=== PATIENT | female | born 1940 | race Caucasian/White ===

== ENCOUNTER 2016-11-26 06:47 | Day surgery (SDC) | payer OTHER, BC ==
[2016-11-03 10:41] VITALS: BMI 22.3
[2016-11-26] MEDS: CYCLOPENTOLATE 2% OPHTH SOLN 2 ML BOTTLE ONE ×3 (07:25→07:35)
[2016-11-26] MEDS: CIPROFLOXACIN 0.3% EYE DROPS 5 ML BOTTLE ONE ×3 (07:25→07:35)
[2016-11-26] MEDS: PHENYLEPHRINE 2.5% OPHTH SOLN 15 ML BOTTLE ONE ×3 (07:25→07:35)
[2016-11-26] MEDS: TROPICAMIDE 1% OPHTH SOLN 15 ML BOTTLE ONE ×3 (07:25→07:35)
[2016-11-26] MEDS ORDERED: LIDOCAINE 1% P/F 10 MG/ML VIAL ONE (07:27)
[2016-11-26] MEDS ORDERED: CARBACHOL 0.01% INTRA-OCULAR 1.5 ML VIAL ONE (07:27)
[2016-11-26] MEDS ORDERED: BSS (NA/CA/MG/K) BALANCED SALT SOLUTION OPHTH SOLN 15 ML BOTTLE ONE (07:27)
[2016-11-26] MEDS ORDERED: MIDAZOLAM HCL 2 MG/2 ML SINGLE DOSE VIAL ONE (08:51)
[2016-11-26] MEDS ORDERED: LACTATED RINGERS SOLUTION 1,000 ML IV SCH (09:15)
[2016-11-26 10:12] VITALS: TEMP 97.7
[2016-11-26 10:13] VITALS: BP 142/61; PULSE 88
--- NOTE | 2016-11-26 16:05 | OP ---
DATE OF OPERATION: 11/26/2016 OPERATIVE PROCEDURE: Lens phacoemulsification with posterior chamber intraocular lens placement right eye. PREOPERATIVE DIAGNOSIS: Visually significant cataract of right eye. POSTOPERATIVE DIAGNOSIS: Visually significant cataract of right eye. SURGEON: Mani Jha M.D. ANESTHESIA: MAC PROCEDURE: The patient was brought to the operating room and placed under monitored anesthesia care by Anesthesia. A drop of tetracaine was then placed over the right eye. The patient was then prepped and draped in the usual sterile manner. A speculum was then placed over the right eye. The eye was then well irrigated with copious amounts of BSS (balanced salt solution). The operating microscope was then moved into position. A paracentesis was performed using a 15 degree blade. At this point 0.5 mL of 1% preservative-free lidocaine was injected into the anterior chamber. Amvisc Plus was then injected into the anterior chamber. A clear corneal incision was then formed using a 2.2 mm keratome. A capsulorrhexis was then performed in a continuous circular fashion beginning with a cystotome and completed with Utrata forceps. Hydrodissection was then performed using BSS on a cannula. The phaco probe was then introduced through the corneal wound and the cataract was removed using the phaco chop technique. Approximately 3 seconds of absolute phaco time was used. The remaining cortex was then removed using irrigation and aspiration with an I/A probe. The capsule was then filled with regular Amvisc and the capsule was noted to be intact. A previously selected foldable posterior chamber intraocular lens was then injected into the capsule through the corneal wound using a lens injector. It was then dialed into position using a Sinskey hook. The Amvisc was then removed using irrigation and aspiration. Miostat was then injected through the paracentesis to constrict the pupil. The paracentesis and corneal wound were then hydrated and noted to be watertight. A drop of Maxitrol was then placed over the eye. The speculum was removed and clear shield was taped over the eye. The patient tolerated the procedure well and there were no surgical complications. The patient was asked to follow up in my office the next day. MANI JHA M.D. LAUREANO/[id number]
== END 2016-11-26 10:05 | disposition home or self-care (01) ==
LOC: FASU 06:47
PROVIDERS: ATTEND Ophthalmology
PROC: 08RJ3JZ Replacement of Right Lens with Synthetic Substitute, Percutaneous Approach (ICD-10-PCS; principal; 2016-11-26 08:56)
DX: H26.8 Other specified cataract (principal)

== ENCOUNTER 2016-12-17 07:15 | Day surgery (SDC) | payer OTHER, BC ==
[2016-12-12 10:40] VITALS: BMI 22.3
[2016-12-17] MEDS ORDERED: TETRACAINE 0.5% OPHTH SOLN 2 ML BOTTLE ONE (07:41)
[2016-12-17] MEDS ORDERED: EPINEPHrine 1:1,000 1 MG/1 ML - 30ML VIAL (INJECTION) ONE (07:41)
[2016-12-17] MEDS ORDERED: BSS (NA/CA/MG/K) BALANCED SALT SOLUTION OPHTH SOLN 15 ML BOTTLE ONE (07:41)
[2016-12-17] MEDS ORDERED: CARBACHOL 0.01% INTRA-OCULAR 1.5 ML VIAL ONE (07:41)
[2016-12-17] MEDS: CYCLOPENTOLATE 2% OPHTH SOLN 2 ML BOTTLE ONE ×3 (08:00→08:10)
[2016-12-17] MEDS: PHENYLEPHRINE 2.5% OPHTH SOLN 15 ML BOTTLE ONE ×3 (08:00→08:10)
[2016-12-17] MEDS: CIPROFLOXACIN 0.3% EYE DROPS 5 ML BOTTLE ONE ×3 (08:00→08:10)
[2016-12-17] MEDS: TROPICAMIDE 1% OPHTH SOLN 15 ML BOTTLE ONE ×3 (08:00→08:10)
[2016-12-17] MEDS ORDERED: ACETAMINOPHEN 325 MG TABLET (FP) PO PRN (09:36)
[2016-12-17] MEDS ORDERED: MIDAZOLAM HCL 2 MG/2 ML SINGLE DOSE VIAL ONE (09:44)
[2016-12-17 10:27] VITALS: BP 130/70; PULSE 78; TEMP 98.2
--- NOTE | 2016-12-17 15:18 | OP ---
DATE OF PROCEDURE: 12/17/2016 OPERATIVE PROCEDURE: Lens Phacoemulsification with Posterior Chamber Intraocular Lens Placement Left Eye. PREOPERATIVE DIAGNOSIS: Visually Significant Cataract of Left Eye. POSTOPERATIVE DIAGNOSIS: Visually Significant Cataract of Left Eye. SURGEON: Mani Jha M.D. ANESTHESIA: MAC ANESTHESIOLOGIST: PROCEDURE: The patient was brought to the operating room and placed under monitored anesthesia care by Anesthesia. A drop of Tetracaine was then placed over the left eye. The patient was then prepped and draped in the usual sterile manner. A speculum was then placed over the left eye. The eye was then well irrigated with copious amounts of BSS (balanced salt solution). The operating microscope was then moved into position. A paracentesis was performed using a 15 degree blade. At this point 0.5 mL of 1% preservative-free lidocaine was injected into the anterior chamber. Amvisc plus was then injected into the anterior chamber. A clear corneal incision was then formed using a 2.2 mm keratome. A capsulorrhexis was then performed in a continuous circular fashion beginning with a cystotome, completed with an Utratas forceps. Hydrodissection was then performed using BSS on a cannula. The phaco probe was then introduced through the corneal wound and the cataract was removed using the phaco chop technique. Approximately 3 seconds of absolute phaco time was used. The remaining cortex was then removed using irrigation and aspiration with an I/A probe. The capsule was then filled with regular Amvisc and the capsule was noted to be intact. A previously selected foldable posterior chamber intraocular lens was then injected into the capsule through the corneal wound using a lens injector. It was then dialed into position using a Sinskey hook. The Amvisc was then removed using irrigation and aspiration. Miostat was then injected through the paracentesis to constrict the pupil. The paracentesis and corneal wound were then hydrated and noted to be water tight. A drop of Maxitrol was then placed over the eye. The speculum was removed and clear shield was taped over the eye. The patient tolerated the procedure well and there were no surgical complications. The patient was asked to follow up in my office the next day. MANI JHA M.D. LAUREANO/[id number]
== END 2016-12-17 11:05 | disposition home or self-care (01) ==
LOC: FASU 07:15
PROVIDERS: ATTEND Ophthalmology
PROC: 08RK3JZ Replacement of Left Lens with Synthetic Substitute, Percutaneous Approach (ICD-10-PCS; principal; 2016-12-17 09:49)
DX: H26.8 Other specified cataract (principal)

== ENCOUNTER 2019-02-15 17:42 | Emergency (ER) | payer OTHER, BC | END 2019-02-15 19:35 | disposition home or self-care (01) | LOC: FER 17:42 ==

== ENCOUNTER 2019-03-27 13:52 | Observation (INO) | payer OTHER, BC ==
--- NOTE | 2019-03-27 13:59 | PDOC ---
History of Present Illness - General Chief Complaint: Chest Pain Stated Complaint: CHEST PAIN Time Seen by Provider: 03/27/19 13:58 - History of Present Illness Initial Comments: 03/27/19 13:59 78 yo F with h/o Parkinson's disease, HLD who p/w chest pain. Patient reports unremitting, sharp, retrosternal/epigastria chest pain radiating directly to the back, present at rest, worse intermittently with supine positioning. Denies h/o similar pain. No identifiable alleviators. Denies abdominal or chest trauma. Reports episode of lightheadedness today at rest lasting for minutes and resolving spontaneously. Reports mild SOB. Patient denies RAND, vertigo, vision change, palpitations, cough, wheezing, orthopena, PND, leg swelling/pain, N/V, F,C, urinary complaints, hematuria, BPR , abdominal pain, diarrhea, constipation, lightheadedness, weakness, sensory changes. PMHx: as noted above. Denies h/o AZ, PE/DVT, stent placement, or CABG. ROS: as noted SHx: Distant smoking/tobacco history. Denies Etoh, IVDA Allergies: NKDA Past History - Past Medical History Allergies/Adverse Reactions: Allergies Allergy/AdvReac Type Severity Reaction Status Date / Time No Known Allergies Allergy Verified 03/27/19 13:55 Home Medications: Ambulatory Orders Ropinirole HCl 5 mg PO TID 11/03/16 Simvastatin [Zocor -] 20 mg PO DAILY 11/03/16 Safinamide Mesylate [Xadago] 1 tab PO DAILY 02/15/19 Carbidopa/Levodopa [Carbidopa-Levodopa 25-250 Tab] 1 each PO QID 03/27/19 Anemia: No Asthma: No Cancer: No Cardiac Disorders: No CVA: No COPD: No CHF: No Dementia: No Diabetes: No GI Disorders: No Disorders: No HTN: Yes Hypercholesterolemia: Yes Liver Disease: No Seizures: No Thyroid Disease: No - Surgical History Abdominal Surgery: No Appendectomy: No Cardiac Surgery: No Cholecystectomy: No Lung Surgery: No Neurologic Surgery: No Orthopedic Surgery: No - Suicide/Smoking/Psychosocial Hx Smoking History: Never smoked Hx Alcohol Use: No Drug/Substance Use Hx: No Substance Use Type: Alcohol Hx Substance Use Treatment: No Heart Score/ECG Review - History History: Slightly suspicious - Electrocardiogram EKG: Non specific repolarization disturbance - Age Age: >/= 65 - Risk Factors Risk Factors Heart Score: Yes Hx Hypercholesterolemia, Yes Hx Hypertension, Yes Smoking History, Yes Positive family hx of cardiac disease Based on the list above the patient has:: >/=3 risk factors or Hx atherosclerotic disease - Troponin Troponin: </= normal limit - Score Heart Score - Total: 5 ED Treatment Course - LABORATORY CBC & Chemistry Diagram: 03/27/19 14:50 03/27/19 14:50 - RADIOLOGY Radiology Studies Ordered: 03/27/19 17:32 Patient Information: : 1940 Order Type: Preliminary Name: GOGO COHEN Sex: F Study Description: CT CTA CHEST Modality: CT Location: [facility] Referring Physician: ROSETTA SUAREZ Comments: Steve Marie MD wrote on Mar 27, 2019 at 05:27 PM: Referring Physician: ROSETTA SUAREZ Patient Name: VICKI BOWENS PRELIMINARY REPORT FROM [facility] EXAM: CTA chest DATE: 2019-03-27 16:03:04 IMAGES: 355 HISTORY: dissection IMPRESSION: No central pulmonary embolism seen. No aortic dissection seen. Mild atelectasis / scarring. One or more of the following dose reduction techniques were used: automated exposure control, adjustment of the mA and/or kV according to patient size, use of iterative reconstructive technique. THIS DOCUMENT HAS BEEN ELECTRONICALLY SIGNED Steve Marie MD 03/27/2019 17:26 EST CONFIDENTIALITY NOTICE: This information is intended only for the use of the recipient(s) named above. If you are not the intended recipient, or a person responsible for delivering it to the intended recipient, you are hereby notified that any disclosure, copying, distribution or use of any of the information contained in or attached to this transmission is STRICTLY PROHIBITED. If you have received this transmission in error, please immediately notify Imaging Title Insurance Agent and destroy the original transmission and its attachments without saving them in any manner [address] [place] [address] [facility] [address] [place] [address] Phone: [phone] ([phone]) Fax: Email: [email or web address]: [email or web address] Patient Information: : 1940 Order Type: Preliminary Name: GOGO COHEN Sex: F Study Description: CT CTA CHEST Modality: CT Location: [facility] Referring Physician: ROSETTA SUAREZ M.D. Please call Imaging Title Insurance Agent [phone] ([phone]) with questions. Steve Marie MD Clinicians - Please contact Imaging Title Insurance Agent with further questions at [phone]) Patients - Please contact your Ordering Provider with questions. 03/27/19 17:45 FINDINGS: Chest No evidence of pulmonary embolus or aortic aneurysm or dissection normal three- vessel aortic arch branch configuration is present. Heart size is normal and without pericardial effusion. Lungs are clear of consolidation, effusion or pneumothorax. No endobronchial lesions are seen. No pathologic mediastinal adenopathy. Bony thoracic cage and spine are intact. CONFIDENTIALITY NOTICE: This information is intended only for the use of the recipient(s) named above. If you are not the intended recipient, or a person responsible for delivering it to the intended recipient, you are hereby notified that any disclosure, copying, distribution or use of any of the information contained in or attached to this transmission is STRICTLY PROHIBITED. If you have received this transmission in error, please immediately notify Imaging Title Insurance Agent and destroy the original transmission and its attachments without saving them in any manner [address] [facility] [address] [place] [address] Phone: [phone]) Fax: Email: [email or web address]: [email or web address] Patient Information: : 1940 Order Type: Preliminary Name: GOGO COHEN Sex: F Study Description: CT CTA CHEST ABDOMEN / CT CTA PELVIS Modality: CT Location: [facility] Referring Physician: ROSETTA SUAREZ Abdomen/Pelvis: The abdominal aorta, iliac and [facility] are patent without aneurysmal dilatation or dissection. Calcified plaque at the origin of the celiac and SMA with stenosis with flow seen distally.. The JONH,and bilateral renal arteries are patent . There is no retroperitoneal hemorrhage or pathologic adenopathy. Retroaortic left renal vein noted. Liver, gallbladder, pancreas, spleen and bilateral adrenal glands are unremarkable. There is no renal mass hydronephrosis or perinephric stranding There is no bowel obstruction ascites pneumoperitoneum or colitis. . Bladder unremarkable. Thoracic and lumbar spine intact without fracture, subluxation or osseous lesion. No evidence of spinal stenosis or large disc herniation. Degenerative changes of the spine are present IMPRESSION: No CT evidence of thoracic or abdominal aortic aneurysm or dissection Lungs are clear. No acute findings in the abdomen or pelvis. One or more of the following dose reduction techniques were used: automated exposure Medical Decision Making - Medical Decision Making 03/27/19 14:08 78 yo F with h/o Parkinson's disease, HLD who p/w unremitting, sharp, retrosternal/epigastria chest pain radiating directly to the back x 2 days, with episode of lightheadedness today at rest. Vitals wnl, AF, A&Ox3. Physical exam unremarkable. ACS/ME r/o. R/o Ao dissection. Will assess for cardiac dyssarythmia, hypoglycemia, electrolyte abnml, metabolic and toxic derangement, acid-base disturbances, infection. ED Course: 03/27/19 16:02 Laboratory Tests 03/27/19 03/27/19 14:50 14:50 WBC 6.1 Hgb 11.8 Hct 35.5 Plt Count 236 BUN 24.0 H Creatinine 0.7 03/27/19 16:47 EKG: Q waves V4-V6. NSR with absent HELIO, STD. Nml interval duration and axis. Nml R wave progression. 03/27/19 17:32 CTA CHEST: No central pulmonary embolism seen. No aortic dissection seen. Mild atelectasis / scarring. CT AP IMPRESSION: No CT evidence of thoracic or abdominal aortic aneurysm or dissection Lungs are clear. No acute findings in the abdomen or pelvis. One or more of the following dose reduction techniques were used: automated exposure 03/27/19 17:45 Patient to be admitted elevated heart score~5, lightheadedness, chest pain at rest 03/27/19 19:06 Pt[address] endorsed to medicine Dr. Biggs. Admitted Dr. Pereira *DC/Admit/Observation/Transfer Diagnosis at time of Disposition: Chest pain at rest, Light-headed - Discharge Dispostion Condition at time of disposition: Good Decision to Admit order: Yes - Referrals - Patient Instructions - Post Discharge Activity
[2019-03-27 14:20] VITALS: BMI 21.9
--- NOTE | 2019-03-27 15:20 | PDOC ---
Attending Attestation - Resident Resident Name: CodyBrandonJerry - ED Attending Attestation I have performed the following: I have examined & evaluated the patient, The case was reviewed & discussed with the resident, I agree w/resident's findings & plan, Exceptions are as noted - HPI HPI: 78 yo F history Parkinson's, HL presents with chest pain for the past two nights. Pain localizes to substernal chest, radiates to mid-back. No prior similar pain. She notes that the chest pain is worse with movement. Denies SOB, N/V, diaphoresis. She has chronic swelling to both ankles that is unchanged. No recent trauma. - Physicial Exam PE: GENERAL: Awake, alert, and fully oriented, in no acute distress HEAD: No signs of trauma EYES: PERRLA, EOMI, sclera anicteric, conjunctiva clear ENT: Auricles normal inspection, hearing grossly normal, nares patent, oropharynx clear without exudates. Moist mucosa NECK: Normal ROM, supple, no lymphadenopathy, JVD, or masses LUNGS: Breath sounds equal, clear to auscultation bilaterally. No wheezes, and no crackles HEART: Regular rate and rhythm, normal S1 and S2, no murmurs, rubs or gallops ABDOMEN: Soft, nontender, normoactive bowel sounds. No guarding, no rebound. No masses EXTREMITIES: Normal range of motion, no edema. No clubbing or cyanosis. No cords, erythema, or tenderness NEUROLOGICAL: Cranial nerves II through XII grossly intact. Speech somewhat slurred (chronic with her Parkinson's). Motor and sensation intact SKIN: Warm, dry, normal turgor, no rashes or lesions noted. - Medical Decision Making Pt with history of HL and 30 year history of smoking presents with chest pain radiating to the back. DDx includes ACS, pna, dissection. Will obtain labs, CXR , EKG, CTA chest. Heart Score/ECG Review - History History: Moderately suspicious - Electrocardiogram EKG: Non specific repolarization disturbance - Age Age: >/= 65 - Risk Factors Risk Factors Heart Score: Yes Hx Hypercholesterolemia, Yes Smoking History Based on the list above the patient has:: 1-2 risk factors - Troponin Troponin: </= normal limit - Score Heart Score - Total: 5 - ECG Impressions Comment:: EKG read 13:55- NSR 73 bpm, no acute ST/T changes. +Q waves V4-V6
[2019-03-27 15:23] LABS: BASO % 0.3 % (0-2.0); HEMATOCRIT 35.5 % (32.4-45.2); HEMOGLOBIN 11.8 GM/dl (10.7-15.3); MCH 33.8 pg (25.7-33.7); MCHC 33.2 g/dl (32.0-36.0); MEAN CELL VOLUME 101.6 fl (80-96); MEAN PLT VOLUME 8.1 fl (7.5-11.1); MONO % 6.5 % (3.8-10.2); NEUT % 74.2 % (42.8-82.8); PLATELET COUNT 236 K/MM3 (134-434); WHITE BLOOD COUNT 6.1 K/mm3 (4.0-10.8)
[2019-03-27 15:50] LABS: ALBUMIN 3.6 g/dl (3.4-5.0); CREATININE 0.7 mg/dl (0.55-1.3); POTASSIUM 4.2 mmol/L (3.5-5.1); TOT PROT 6.4 g/dl (6.4-8.2)
--- NOTE | 2019-03-27 20:43 | HP ---
CHIEF COMPLAINT: chest pain PCP: HISTORY OF PRESENT ILLNESS: 78 year old with PMHx of Parkinson's disease, HLD, arrived to ED with complain of chest pain (pain started two days ago comes and goes sharp in nature) pain starts at the epigastric region and radiates to low back, present at rest. As per patient did not have similar pain in the past, did not take any medication ( OTC) to relief the pain. At this time denies sob, N/V, abdominal pain, cough, urinary complaints. ER course was notable for: (1) EKG: NSR 73 bpm, no acute ST/T changes. +Q waves V4-V6 (2) troponin: negative (3) CTA chest / CXR negative Recent Travel: NO PAST MEDICAL HISTORY: HLD, Parkinson's disease PAST SURGICAL HISTORY: denies Social History: Smoking: history of smoking 30 years ago Alcohol:No Drugs: No Allergies: No Known Allergies Allergy (Verified 03/27/19 13:55) HOME MEDICATIONS: Home Medications Medication Instructions Recorded Ropinirole HCl 5 mg PO TID 11/03/16 Simvastatin [Zocor -] 20 mg PO DAILY 11/03/16 Safinamide Mesylate [Xadago] 1 tab PO DAILY 02/15/19 Carbidopa/Levodopa 1 each PO QID 03/27/19 [Carbidopa-Levodopa 25-250 Tab] REVIEW OF SYSTEMS CONSTITUTIONAL: Absent: complain of lightheadedness HEENT: Absent: rhinorrhea, nasal congestion, throat pain, throat swelling, difficulty swallowing, mouth swelling, ear pain, eye pain, visual changes CARDIOVASCULAR: + chest pain, lightheadedness RESPIRATORY: Absent: cough, shortness of breath, dyspnea with exertion, orthopnea, wheezing, stridor, hemoptysis GASTROINTESTINAL: Absent: abdominal pain, abdominal distension, nausea, vomiting , diarrhea, constipation, melena, hematochezia GENITOURINARY: Absent: dysuria, frequency, urgency, hesitancy, hematuria, flank pain, genital pain MUSCULOSKELETAL: Absent: myalgia, arthralgia, joint swelling, back pain, neck pain SKIN: Absent: rash, itching, pallor NEUROLOGIC: Absent: headache, focal weakness or paresthesias, dizziness Absent: anxiety, depression, suicidal or homicidal ideation, hallucinations. PHYSICAL EXAMINATION Vital Signs - 24 hr 03/27/19 03/27/1919 13:53 14:15 15:15 Temperature 98.5 F Pulse Rate 76 Pulse Rate [ 80 65 Apical] Respiratory 18 16 16 Rate Blood Pressure 142/60 Blood Pressure 144/76 110/50 L [Right Arm] O2 Sat by Pulse 98 98 98 Oximetry (%) 03/27/19 18:15 Temperature Pulse Rate Pulse Rate [ 72 Apical] Respiratory 18 Rate Blood Pressure Blood Pressure 132/63 [Right Arm] O2 Sat by Pulse 98 Oximetry (%) GENERAL: Awake, alert, and fully oriented, in no acute distress. HEENT: NC/AT, EOMI,PERRLA NECK: No JVD, or masses. LUNGS: Breath sounds equal, clear to auscultation bilaterally. No wheezes, and no crackles. No accessory muscle use. HEART: Regular rate and rhythm, normal S1 and S2 without murmur, rub or gallop. ABDOMEN: Soft, nontender, not distended, normoactive bowel sounds, no guarding, no rebound, no masses. MUSCULOSKELETAL: Normal range of motion at all joints. No bony deformities or tenderness. No CVA tenderness NEUROLOGICAL: Cranial nerves II-XII intact. Normal speech. Normal gait. PSYCHIATRIC: Cooperative. Good eye contact. Appropriate mood and affect. SKIN: Warm, dry, normal turgor, no rashes or lesions noted, normal capillary refill. Laboratory Results - last 24 hr 03/27/19 03/27/19 03/27/19 14:50 14:50 14:50 WBC 6.1 RBC 3.50 L Hgb 11.8 Hct 35.5 MCV 101.6 H MCH 33.8 H MCHC 33.2 RDW 13.0 Plt Count 236 MPV 8.1 Absolute Neuts (auto) 4.5 Neutrophils % 74.2 Lymphocytes % 18.0 Monocytes % 6.5 Eosinophils % 1.0 Basophils % 0.3 Sodium 137 Potassium 4.2 Chloride 106 Carbon Dioxide 24 Anion Gap 7 L BUN 24.0 H Creatinine 0.7 Est GFR (CKD-EPI)AfAm 95.51 Est GFR (CKD-EPI)NonAf 82.41 Random Glucose 102 Calcium 9.0 Total Bilirubin 1.0 AST 17 ALT 5 L Alkaline Phosphatase 69 Creatine Kinase Troponin I < 0.03 Total Protein 6.4 Albumin 3.6 03/27/19 14:50 WBC RBC Hgb Hct MCV MCH MCHC RDW Plt Count MPV Absolute Neuts (auto) Neutrophils % Lymphocytes % Monocytes % Eosinophils % Basophils % Sodium Potassium Chloride Carbon Dioxide Anion Gap BUN Creatinine Est GFR (CKD-EPI)AfAm Est GFR (CKD-EPI)NonAf Random Glucose Calcium Total Bilirubin AST ALT Alkaline Phosphatase Creatine Kinase 101 Troponin I Total Protein Albumin ASSESSMENT/PLAN: 78 year old female with PMhx of Parkinson's disease, HLD present to ED for retrosternal /epigastric chest pain sharp in nature started 2 days ago, today noted with lightheadedness for brief moment then relief. # Chest pain - EKG: non-impressive - Troponin: negative - follow up Troponin #2 - monitor for sob and acute changes in CP # GERD - give Mylanta x1 - start Prilosec 40 mg daily # HLD - continue with zocor - # parkinson's - Continue ith Carbidpoda/ levodopa - Continue with Ropinirole and Safinamide Problem List - Problem (1) Chest pain at rest Code(s): R07.9 - CHEST PAIN, UNSPECIFIED (2) GERD (gastroesophageal reflux disease) Code(s): K21.9 - GASTRO-ESOPHAGEAL REFLUX DISEASE WITHOUT ESOPHAGITIS (3) HLD (hyperlipidemia) Code(s): E78.5 - HYPERLIPIDEMIA, UNSPECIFIED (4) Parkinsons disease Code(s): G20 - PARKINSON'S DISEASE Visit type - Emergency Visit Emergency Visit: Yes ED Registration Date: 03/27/19 Care time: The patient presented to the Emergency Department on the above date and was hospitalized for further evaluation of their emergent condition. - New Patient This patient is new to me today: Yes Date on this admission: 03/27/19 - Critical Care Critical Care patient: No
[2019-03-27] MEDS ORDERED: MAG HYDROX/AL HYDROX/SIMETH 30 ML UNIT-DOSE CUP PO ONE (20:46)
[2019-03-27] MEDS ORDERED: POLYETHYLENE GLYCOL 3350 119 GM BTL PO ONE (20:49)
--- NOTE | 2019-03-27 21:01 | EKG ---
Test Reason : Blood Pressure : / mmHG Vent. Rate : 073 BPM Atrial Rate : 073 BPM P-R Int : 136 ms QRS Dur : 080 ms QT Int : 374 ms P-R-T Axes : 079 069 070 degrees QTc Int : 412 ms NORMAL SINUS RHYTHM NORMAL ECG NO PREVIOUS ECGS AVAILABLE Confirmed by TIFFANIE PRICE MD ([id number]) on 03/27/2019 9:00:30 PM Referred By: ERICK SARGENT Confirmed By:TIFFANIE PRICE MD
[2019-03-27] MEDS ORDERED: ROPINIROLE HCL 5 MG PO SCH (22:00)
[2019-03-27] MEDS: HEPARIN NA (PORCINE) 5,000 UNITS/ML 1ML VIAL SQ SCH (22:37)
[2019-03-27] MEDS: rOPINIRole HCL 1 MG TABLET (FP) PO SCH (22:37)
[2019-03-27] MEDS: CARBIDOPA/LEVODOPA 25/250 TABLET (FP) PO SCH (22:37)
[2019-03-27] MEDS: ATORVASTATIN CA 10 MG TABLET (FP) PO SCH (22:37)
[2019-03-28 08:49] LABS: CREATININE 0.7 mg/dl (0.55-1.3); POTASSIUM 4.5 mmol/L (3.5-5.1)
[2019-03-28 08:51] LABS: HEMATOCRIT 34.2 % (32.4-45.2); HEMOGLOBIN 11.7 GM/dl (10.7-15.3); MCH 34.8 pg (25.7-33.7); MCHC 34.1 g/dl (32.0-36.0); MEAN PLT VOLUME 8.6 fl (7.5-11.1); PLATELET COUNT 218 K/MM3 (134-434); RBC 3.35 M/mm3 (3.60-5.2); RDW 12.8 % (11.6-15.6)
--- NOTE | 2019-03-28 09:20 | PN ---
Progress Note, Physician Chief Complaint: chest pain at rest History of Present Illness: 78 year old with PMHx of Parkinson's disease, HLD, arrived to ED with complain of chest pain (pain started two days ago comes and goes sharp in nature) pain starts at the epigastric region and radiates to low back, present at rest. As per patient did not have similar pain in the past, did not take any medication ( OTC) to relief the pain. At this time denies sob, N/V, abdominal pain, cough, urinary complaints. - Current Medication List Current Medications: Active Medications Atorvastatin Calcium (Lipitor -) 10 mg PO HS [facility] Last Admin: 03/27/19 22:37 Dose: 10 mg Carbidopa/Levodopa (Sinemet 25/250 -) 1 each PO QID [facility] Last Admin: 03/27/19 22:37 Dose: 1 each Heparin Sodium (Porcine) (Heparin -) 5,000 unit SQ BID [facility] Last Admin: 03/27/19 22:37 Dose: 5,000 unit Pantoprazole Sodium (Protonix -) 20 mg PO DAILY [facility] Polyethylene Glycol (Miralax (For Daily Use) -) 17 gm PO DAILY [facility] Ropinirole HCl (Requip -) 1 mg PO QID [facility] Last Admin: 03/27/19 22:37 Dose: 1 mg - Objective Vital Signs: Vital Signs Temperature 97.5 F L 03/28/19 04:04 Pulse Rate 64 03/28/19 04:04 Respiratory Rate 18 03/28/19 04:04 Blood Pressure 124/60 03/28/19 04:04 O2 Sat by Pulse Oximetry (%) 97 03/28/19 04:04 Constitutional: Yes: Well Nourished, No Distress, Calm Eyes: Yes: WNL, Conjunctiva Clear, EOM Intact HENT: Yes: WNL, Atraumatic, Normocephalic Neck: Yes: WNL, Supple, Trachea Midline Cardiovascular: Yes: WNL, Regular Rate and Rhythm Respiratory: Yes: WNL, Regular, CTA Bilaterally Gastrointestinal: Yes: WNL, Normal Bowel Sounds, Soft ...Rectal Exam: Yes: Deferred Genitourinary: Yes: WNL Breast(s): Yes: WNL Musculoskeletal: Yes: WNL Extremities: Yes: WNL Edema: Yes Edema: LLE: 1+, RLE: 1+ Peripheral Pulses WNL: Yes Integumentary: Yes: WNL Neurological: Yes: WNL, Alert, Oriented ...Motor Strength: WNL Psychiatric: Yes: WNL, Alert, Oriented Labs: CBC, BMP 03/28/19 07:09 03/28/19 07:09 - ....Imaging Cat Scan: Report Reviewed (No abdominal/thoracic anyerysm noted. Bibasilat atelectasis. Fecal retention) Problem List - Problems (1) Fecal retention Assessment/Plan: history of chronic constipation c/w miralax dulcolax OO and if no result may give magnesium citrate Code(s): K59.00 - CONSTIPATION, UNSPECIFIED (2) Prophylactic measure Assessment/Plan: FEN adequate oral intact monitor electrolytes regular diet DVT heoarin sq Dispo maintain as in patient full code discharge planning Code(s): Z29.9 - ENCOUNTER FOR PROPHYLACTIC MEASURES, UNSPECIFIED (3) Chest pain at rest Assessment/Plan: chest pain resolved trop negative CTA negative EKG without ischemia, repeat if Chest pain returns will consult cardiology if chest pain returns for further testing Code(s): R07.9 - CHEST PAIN, UNSPECIFIED (4) GERD (gastroesophageal reflux disease) Assessment/Plan: c/w protonix Code(s): K21.9 - GASTRO-ESOPHAGEAL REFLUX DISEASE WITHOUT ESOPHAGITIS (5) HLD (hyperlipidemia) Assessment/Plan: c/w atorvastatin Code(s): E78.5 - HYPERLIPIDEMIA, UNSPECIFIED (6) Parkinsons disease Assessment/Plan: c/w sinemet c/w Ropinirole and Safinamide Code(s): G20 - PARKINSON'S DISEASE Visit type - Emergency Visit Emergency Visit: Yes ED Registration Date: 03/28/19 Care time: The patient presented to the Emergency Department on the above date and was hospitalized for further evaluation of their emergent condition. - New Patient This patient is new to me today: Yes Date on this admission: 03/28/19 - Critical Care Critical Care patient: No - Discharge Referral Referred to [facility] Med P.C.: No
[2019-03-28] MEDS ORDERED: PATIENT'S OWN MEDICATION (NON-FORMULARY) (Simvastatin 20 MG) PO SCH (10:00)
[2019-03-28] MEDS ORDERED: SAFINAMIDE MESYLATE PO SCH (10:00)
[2019-03-28] MEDS: POLYETHYLENE GLYCOL 3350 119 GM BTL PO SCH (10:08)
[2019-03-28] MEDS: HEPARIN NA (PORCINE) 5,000 UNITS/ML 1ML VIAL SQ SCH ×2 (10:08→22:05)
[2019-03-28] MEDS: PANTOPRAZOLE 20 MG TABLET (FP) PO SCH (10:09)
[2019-03-28] MEDS: rOPINIRole HCL 1 MG TABLET (FP) PO SCH ×4 (10:09→22:05)
[2019-03-28] MEDS: CARBIDOPA/LEVODOPA 25/250 TABLET (FP) PO SCH ×4 (10:09→22:05)
[2019-03-28] MEDS ORDERED: BISACODYL 5 MG TABLET.DR (FP) PO ONE (11:00)
[2019-03-28] MEDS ORDERED: MAGNESIUM CITRATE 300 ML BOTTLE PO PRN (11:12)
[2019-03-28] MEDS ORDERED: ACETAMINOPHEN 325 MG TABLET (FP) PO PRN (18:14)
[2019-03-28] MEDS ORDERED: SODIUM PHOSPHATE/NA BIPHOS 133 ML ENEMA PR ONE (20:50)
[2019-03-28] MEDS: ATORVASTATIN CA 10 MG TABLET (FP) PO SCH (22:05)
[2019-03-29 08:51] LABS: BASO % 0.4 % (0-2.0); EOS % 3.8 % (0-4.5); HEMATOCRIT 35.5 % (32.4-45.2); MCH 34.2 pg (25.7-33.7); MCHC 33.8 g/dl (32.0-36.0); MEAN CELL VOLUME 101.4 fl (80-96); MEAN PLT VOLUME 8.3 fl (7.5-11.1); MONO % 8.6 % (3.8-10.2); NEUT % 63.2 % (42.8-82.8); PLATELET COUNT 224 K/MM3 (134-434); RDW 12.6 % (11.6-15.6); WHITE BLOOD COUNT 5.8 K/mm3 (4.0-10.8)
[2019-03-29 09:05] LABS: ALBUMIN 3.5 g/dl (3.4-5.0); BILIRUBIN,TOTAL 0.8 mg/dl (0.2-1); CALCIUM 8.8 mg/dl (8.5-10); CREATININE 0.7 mg/dl (0.55-1.3); MAGNESIUM 2.5 mg/dL (1.8-2.4); POTASSIUM 3.9 mmol/L (3.5-5.1); TOT PROT 6.4 g/dl (6.4-8.2)
[2019-03-29] MEDS ORDERED: ALBUTEROL SO4 2.5/IPRATROPIUM 0.5 INH SOL 3 ML VIAL.NEB. NEB PRN (09:59)
[2019-03-29] MEDS ORDERED: POTASSIUM CHLORIDE ORAL LIQUID 20 MEQ/15 ML PO ONE (10:15)
[2019-03-29] MEDS: HEPARIN NA (PORCINE) 5,000 UNITS/ML 1ML VIAL SQ SCH ×2 (10:31→22:15)
[2019-03-29] MEDS: POLYETHYLENE GLYCOL 3350 119 GM BTL PO SCH (10:34)
[2019-03-29] MEDS: CARBIDOPA/LEVODOPA 25/250 TABLET (FP) PO SCH ×4 (10:36→22:16)
[2019-03-29] MEDS: PANTOPRAZOLE 20 MG TABLET (FP) PO SCH (10:36)
[2019-03-29] MEDS: rOPINIRole HCL 1 MG TABLET (FP) PO SCH ×4 (10:36→22:16)
[2019-03-29] MEDS ORDERED: MAG HYDROX/AL HYDROX/SIMETH -MYLANTA- ORAL SUSPENSION PO SCH (12:00)
--- NOTE | 2019-03-29 14:13 | PN ---
Progress Note, Physician Chief Complaint: epigastric pain continued, denies radiation to back History of Present Illness: 24HR events CTA negative for dissection, + fecal retention + bowel movement with intensified bowel regimen pt with epigastric pain this morning relieved with maalox and protonix - Current Medication List Current Medications: Active Medications Acetaminophen (Tylenol -) 650 mg PO Q6H PRN PRN Reason: PAIN LEVEL 4 - 6 Last Admin: 03/28/19 18:20 Dose: 650 mg Al Hydroxide/Mg Hydroxide (Mylanta Suspension -) 30 ml PO Q6HPO [facility] Last Admin: 03/29/19 12:26 Dose: 30 ml Albuterol/Ipratropium (Duoneb -) 1 amp NEB Q6H PRN PRN Reason: SHORTNESS OF BREATH Atorvastatin Calcium (Lipitor -) 10 mg PO HS [facility] Last Admin: 03/28/19 22:05 Dose: 10 mg Carbidopa/Levodopa (Sinemet 25/250 -) 1 each PO QID [facility] Last Admin: 03/29/19 10:36 Dose: 1 each Famotidine (Pepcid -) 20 mg PO [facility] Heparin Sodium (Porcine) (Heparin -) 5,000 unit SQ BID [facility] Last Admin: 03/29/19 10:31 Dose: 5,000 unit Magnesium Citrate (Citroma -) 300 ml PO PRN PRN PRN Reason: CONSTIPATION Last Admin: 03/28/19 22:06 Dose: 300 ml Pantoprazole Sodium (Protonix -) 20 mg PO DAILY [facility] Last Admin: 03/29/19 10:36 Dose: 20 mg Polyethylene Glycol (Miralax (For Daily Use) -) 17 gm PO DAILY [facility] Last Admin: 03/29/19 10:34 Dose: 17 gm Ropinirole HCl (Requip -) 1 mg PO QID [facility] Last Admin: 03/29/19 10:36 Dose: 1 mg Senna/Docusate Sodium (Pericolace -) 1 tablet PO BID [facility] - Objective Vital Signs: Vital Signs Temperature 97.5 F L 03/29/19 10:00 Pulse Rate 71 03/29/19 10:00 Respiratory Rate 18 03/29/19 10:00 Blood Pressure 143/64 03/29/19 10:00 O2 Sat by Pulse Oximetry (%) 98 03/29/19 08:00 Constitutional: Yes: No Distress, Calm, Thin Eyes: Yes: Conjunctiva Clear, PERRL HENT: Yes: Atraumatic, Normocephalic Neck: Yes: Supple Cardiovascular: Yes: Regular Rate and Rhythm Respiratory: Yes: Regular, Wheezes Gastrointestinal: Yes: Normal Bowel Sounds, Soft Musculoskeletal: Yes: Muscle Weakness Extremities: Yes: WNL Edema: No Peripheral Pulses WNL: Yes Peripheral Pulses: Left Radial: 2+, Right Radial: 2+ Integumentary: Yes: WNL Neurological: Yes: Alert, Oriented ...Motor Strength: LLE, RLE (decreased muscle strength b/l 4/5) Psychiatric: Yes: Alert, Oriented Labs: CBC, BMP 03/29/19 07:13 03/29/19 07:13 Problem List - Problems (1) Epigastric pain Assessment/Plan: Limited abd sono to assess Liver/GB/Pancreas Code(s): R10.13 - EPIGASTRIC PAIN (2) GERD (gastroesophageal reflux disease) Assessment/Plan: continue protonix add famotidine at bedtime PRN maalox Code(s): K21.9 - GASTRO-ESOPHAGEAL REFLUX DISEASE WITHOUT ESOPHAGITIS (3) HLD (hyperlipidemia) Assessment/Plan: c/w lipitor low fat diet Code(s): E78.5 - HYPERLIPIDEMIA, UNSPECIFIED (4) Prophylactic measure Assessment/Plan: FEN:Ensure adequate oral intake OOB to chair Ambulate as tolerated Incentive spirometer DVT: heparin sq Code(s): Z29.9 - ENCOUNTER FOR PROPHYLACTIC MEASURES, UNSPECIFIED (5) Parkinsons disease Assessment/Plan: c/w sinemet c/w Ropinirole and Safinamide frequent reorientation Code(s): G20 - PARKINSON'S DISEASE (6) Wheezing on auscultation Assessment/Plan: Duonebs Q6hrs PRN Oxygen IS Code(s): R06.2 - WHEEZING (7) Constipation by delayed colonic transit Assessment/Plan: start pericolace BID PRN miralax high fiber diet Code(s): K59.01 - SLOW TRANSIT CONSTIPATION Impression/Plan Impression/Plan: DISPO:home when stable, most likely tomorrow morning if RUQ sono negative, pt can be discharged with GI follow up Code status: Full code Visit type - Emergency Visit Emergency Visit: Yes ED Registration Date: 03/28/19 Care time: The patient presented to the Emergency Department on the above date and was hospitalized for further evaluation of their emergent condition. - New Patient This patient is new to me today: Yes Date on this admission: 03/29/19 - Critical Care Critical Care patient: No - Discharge Referral Referred to [facility] Med P.C.: Yes Physician Referral: Pineda Morales DO (GI)
[2019-03-29] MEDS ORDERED: MAG HYDROX/AL HYDROX/SIMETH 30 ML UNIT-DOSE CUP PO SCH (17:45)
[2019-03-29] MEDS: MAG HYDROX/AL HYDROX/SIMETH 30 ML UNIT-DOSE CUP PO SCH (17:52)
[2019-03-29] MEDS ORDERED: FAMOTIDINE 20 MG TABLET PO SCH (22:00)
[2019-03-29] MEDS: ATORVASTATIN CA 10 MG TABLET (FP) PO SCH (22:15)
[2019-03-29] MEDS: SENNOSIDES/DOCUSATE COMBO (SENNA PLUS) TABLET (UD) PO SCH (22:16)
[2019-03-30] MEDS: MAG HYDROX/AL HYDROX/SIMETH 30 ML UNIT-DOSE CUP PO SCH ×3 (00:32→12:09)
[2019-03-30 07:53] LABS: BASO % 0.3 % (0-2.0); EOS % 4.8 % (0-4.5); HEMATOCRIT 35.9 % (32.4-45.2); HEMOGLOBIN 12.1 GM/dl (10.7-15.3); LYMPH % 29.4 % (8-40); MCH 33.9 pg (25.7-33.7); MCHC 33.6 g/dl (32.0-36.0); MEAN CELL VOLUME 100.9 fl (80-96); MEAN PLT VOLUME 8.3 fl (7.5-11.1); MONO % 8.5 % (3.8-10.2); PLATELET COUNT 244 K/MM3 (134-434); RBC 3.55 M/mm3 (3.60-5.2); RDW 12.6 % (11.6-15.6); WHITE BLOOD COUNT 5.4 K/mm3 (4.0-10.8)
[2019-03-30 07:59] LABS: ALBUMIN 3.5 g/dl (3.4-5.0); BILIRUBIN,TOTAL 0.6 mg/dl (0.2-1); CREATININE 0.8 mg/dl (0.55-1.3); MAGNESIUM 2.7 mg/dL (1.8-2.4); POTASSIUM 4.3 mmol/L (3.5-5.1); TOT PROT 6.4 g/dl (6.4-8.2)
[2019-03-30] MEDS: POLYETHYLENE GLYCOL 3350 119 GM BTL PO SCH (09:23)
[2019-03-30] MEDS: HEPARIN NA (PORCINE) 5,000 UNITS/ML 1ML VIAL SQ SCH (09:24)
[2019-03-30] MEDS: PANTOPRAZOLE 20 MG TABLET (FP) PO SCH (09:24)
[2019-03-30] MEDS: CARBIDOPA/LEVODOPA 25/250 TABLET (FP) PO SCH (09:24)
[2019-03-30] MEDS: rOPINIRole HCL 1 MG TABLET (FP) PO SCH (09:24)
[2019-03-30] MEDS: SENNOSIDES/DOCUSATE COMBO (SENNA PLUS) TABLET (UD) PO SCH (09:24)
[2019-03-30 09:29] VITALS: BP 154/66; PULSE 86; TEMP 97.6
--- NOTE | 2019-03-30 10:08 | DS ---
Physical Examination Vital Signs: Vital Signs Temperature 97.6 F 03/30/19 09:28 Pulse Rate 86 03/30/19 09:28 Respiratory Rate 18 03/30/19 09:28 Blood Pressure 154/66 03/30/19 09:28 O2 Sat by Pulse Oximetry (%) 99 03/30/19 08:00 Constitutional: Yes: No Distress, Calm Eyes: Yes: Conjunctiva Clear, PERRL HENT: Yes: Atraumatic, Normocephalic Neck: Yes: Supple, Trachea Midline Cardiovascular: Yes: Regular Rate and Rhythm Respiratory: Yes: Regular, CTA Bilaterally Gastrointestinal: Yes: Normal Bowel Sounds, Soft ...Rectal Exam: Yes: Deferred Renal/: Yes: Other (adult diaper in place) Musculoskeletal: Yes: Joint Stiffness, Muscle Weakness Extremities: Yes: WNL Edema: No Peripheral Pulses WNL: Yes Peripheral Pulses: Left Radial: 2+, Right Radial: 2+ Integumentary: Yes: WNL Neurological: Yes: Alert, Oriented, Unsteady Gait, Weakness ...Motor Strength: LLE (weakness, strength 4/5), RLE Psychiatric: Yes: Alert, Oriented Labs: CBC, BMP 03/30/19 06:53 03/30/19 06:53 Discharge Summary Reason For Visit: CHEST PAIN AT REST - LIGHT HEADEDNESS Current Active Problems Chest pain at rest (Acute) Constipation by delayed colonic transit (Acute) Epigastric pain (Acute) Fecal retention (Acute) GERD (gastroesophageal reflux disease) (Acute) HLD (hyperlipidemia) (Acute) Light-headed (Acute) Prophylactic measure (Acute) Wheezing on auscultation (Acute) Procedures: Principal: CXR 03/27/2019. AP chest: Shortness of breath. A single AP view of the chest reveals clear lungs, normal heart, unfolded aorta and prominent hilar markings with some minimal scarring at the left base. The angles are sharp. The soft tissues are intact. An acute process is not seen. Since 11/26/2018, the cardiac silhouette is slightly smaller and focal scarring by the left base is again noted. Correlation recommended. Reported By: Ruben Bhatti MD 03/27/19 1518. . CTA chest 03/27/2019. IMPRESSION: 1. No evidence of thoracic or abdominal aortic aneurysm or dissection. 2. Mild bibasilar atelectasis, no acute pathology within the chest. 3. Fecal retention, no acute pathology within the abdomen or pelvis. Please see above discussion. Reported By: Kar Gaona MD 03/28/[address] abd and pelvis w/ and WO contrast 03/27/2019. IMPRESSION: 1. No evidence of thoracic or abdominal aortic aneurysm or dissection. 2. Mild bibasilar atelectasis, no acute pathology within the chest. 3. Fecal retention, no acute pathology within the abdomen or pelvis. Please see above discussion. Reported By: Kar Gaona MD 03/28/19 0932. . Abd X-ray 03/29/2019. Impression: No sign of impaction or gross constipation. Free air not seen. Reported By: Ruben Bhatti MD 03/29/19 1132. . CXR 03/29/2019. Single AP view of the chest is been submitted. Since the prior study of 03/27/2019 there is no significant change and no sign of an acute chest process. There are clear lungs and normal mediastinum. Reported By: Ruben Bhatti MD 03/29/19 1126. Other Procedures: Abd sono 03/29/2019. IMPRESSION: No gallstones identified. Calcified atheromatous plaques in visualized portion of the abdominal aorta down through its bifurcation. Reported By: Malachi Ott MD 03/30/19 0911 Hospital Course: 78 year old with PMHx of Parkinson's disease, HLD, arrived to ED with complain of chest pain (pain started two days ago comes and goes sharp in nature) pain starts at the epigastric region and radiates to low back, present at rest. As per patient did not have similar pain in the past, did not take any medication ( OTC) to relief the pain. At this time denies sob, N/V, abdominal pain, cough, urinary complaints. ER course was notable for: (1) EKG: NSR 73 bpm, no acute ST/T changes. +Q waves V4-V6 (2) troponin: negative (3) CTA chest / CXR negative Inpatient work up did not reveal any acute pathologies. Her constipation was treated with pericolace/miralax and dulcolax supp and her GERD symptoms were relieved with maalox/protonix/pepcid. Pt deemed stable for discharge with outpatient GI follow up. Appointment scheduled with Dr. Pineda Morales DO Address: [address] [place] [address] Date: april 27 2019, 4:30pm Condition: Guarded - Instructions Diet, Activity, Other Instructions: Gastritis is inflammation and irritation of the stomach lining. You can have it for a short time (acute) or be long lasting (chronic). Infection with bacteria called H pylori most often causes gastritis. More than a third of people in the have these bacteria in their bodies. In many cases, H pylori causes no problems or symptoms. In some people, though, the infection irritates the stomach lining and causes gastritis. H. pylori may be diagnosed through blood, stool, or breath tests, we well as through biopsy during an endoscopy. Other causes of stomach irritation include drinking alcohol, smoking or chewing tobacco, or taking pain-relieving medicines called NSAIDs (such as aspirin or ibuprofen). Certain drugs (such as cocaine) and immune conditions can also cause gastritis. Symptoms of gastritis can include: Belly pain or bloating Feeling full quickly Loss of appetite Nausea or vomiting Vomiting blood or having black stools Feeling more tired than usual An inflamed and irritated stomach lining is more likely to develop a sore called an ulcer. To help prevent this, gastritis should be treated. Gastroenterology appointment Referrals: Luis Morales DO [Staff Physician] - Disposition: HOME - Home Medications Comprehensive Discharge Medication List: Ambulatory Orders Ropinirole HCl 5 mg PO TID 11/03/16 Simvastatin [Zocor -] 20 mg PO DAILY 11/03/16 Safinamide Mesylate [Xadago] 1 tab PO DAILY 02/15/19 Carbidopa/Levodopa [Carbidopa-Levodopa 25-250 Tab] 1 each PO QID 03/27/19 Acetaminophen [Tylenol .Regular Strength -] 650 mg PO Q6H PRN tablet 03/30/19 Famotidine [Pepcid -] 20 mg PO HS 30 Days #30 tablet 03/30/19 Mag Hydrox/Al Hydrox/Simeth [MAALOX *SUSPENSION* -] 30 ml PO Q6HPO 30 Days #1 ml 03/30/19 Magnesium Citrate [Citroma -] 300 ml PO PRN PRN bottle 03/30/19 Pantoprazole Sodium [Protonix -] 20 mg PO DAILY 30 Days #30 tablet.ec 03/30/19 Ropinirole HCl [Requip -] 1 mg PO QID tablet 03/30/19 Sennosides/Docusate Sodium [Pericolace -] 1 tablet PO BID 30 Days #60 tablet This patient is new to me today: No Emergency Visit: Yes ED Registration Date: 03/28/19 Care time: The patient presented to the Emergency Department on the above date and was hospitalized for further evaluation of their emergent condition. Critical Care patient: No - Discharge Referral Referred to [facility] Med P.C.: No Physician Referral: Pineda Morales DO (GI)
== END 2019-03-30 12:41 | disposition home or self-care (01) ==
LOC: FER 13:52 → INTOOBSV 17:59 → UNDOADMOB 17:59 → FM/S 17:59
PROVIDERS: ADMIT Internal Medicine; ATTEND Nurse Practitioner Family
PROC: 3E013GC Introduction of Other Therapeutic Substance into Subcutaneous Tissue, Percutaneous Approach (ICD-10-PCS; principal; 2019-03-28)
DX: R07.9 Chest pain, unspecified (principal); R10.13 Epigastric pain; K59.01 Slow transit constipation; K21.9 Gastro-esophageal reflux disease without esophagitis; E78.5 Hyperlipidemia, unspecified; R42 Dizziness and giddiness; G20 Parkinson's disease; Z29.9 Encounter for prophylactic measures, unspecified; R06.2 Wheezing; Z87.891 Personal history of nicotine dependence
CPT/HCPCS: 36415; 71045-TC-FY; 71275-TC; 74019-TC-FY; 74174-TC; 76705-TC; 80048; 80053; 82550; 83735; 84484; 85025; 85027; 86677; 93005; 96372; 99285-25; G0378; J1644

== ENCOUNTER → 2019-04-19 | Emergency (ER) | payer OTHER, BC ==
[2019-04-19 13:48] VITALS: BP 122/66; PULSE 85; TEMP 97.5; BMI 21.6
--- NOTE | 2019-04-19 14:01 | PDOC ---
Attending Attestation - Resident Resident Name: Obdulio Linton - ED Attending Attestation I have performed the following: I have examined & evaluated the patient, The case was reviewed & discussed with the resident, I agree w/resident's findings & plan - HPI HPI: 04/19/19 13:59 78 y/o female with hx of Parkinson's presents with fall this morning, injurying her face and knees. No chest pain, SOB or headache. Denies neck pain. N/V/d/C. No back pain. Has not taken anything. PMD advised to come in to be checked out. - Physicial Exam PE: 04/19/19 14:00 VSS HEENT: abrasion and dried blood to nose, PERRLA, EOMI, neck supple, full ROM, no spinous process tenderness HEART: RRR w/o murmur Lungs: CTA b/l, no wheezing rhonchi or rales ABD: soft non tender +BS EXT swollen knees b/l, ecchymotic, old abrasion to right tibia Neuro: strength 5+/5 b/l in UE and LE, no focal deficits noted - Medical Decision Making 04/19/19 15:50 CT head/facial bones: no bleed, no fracture b/l knee x-ray: no fracture Case discussed and reviewed with Dr. Linton, resident Ice, Tylenol, rest Head injury handout If worsen return to ER Dx: Head injury FACIAL contusion knee b/l contusion
--- NOTE | 2019-04-19 14:04 | PDOC ---
History of Present Illness - General Chief Complaint: Injury Stated Complaint: FALL PARKINSONS Time Seen by Provider: 04/19/19 13:13 History Source: Patient, Family Exam Limitations: No Limitations - History of Present Illness Initial Comments: 04/19/19 13:48 HPI: 78yo female with pmh Parkinson's disease, HLD who presents s/p unwitnessed , mechanical fall from standing. Pt with history of weekly falls believed due to Parkinsons - no cardiac history, no anticoagulation. Today fell onto face and knees in bedroom, landing face first on a rug with brief LOC. Crawled to phone in kitchen, called daughter who contacted PCP who advised ED presentation to rule out facial fracture. Patient currently with pain in face and bilateral knees. Denies prodrome, recent illness, or preceding chest pain, palpitations, SOB, cough, lightheadedness. BP was 120s/60s this morning per daughter. Normal PO intake. Patient currently denies RAND, dizziness, neck pain, vision change, N/V, F,C, urinary complaints, hematuria, BPR, abdominal pain, diarrhea, constipation, lightheadedness, weakness, sensory changes. PMHx: as noted above. Denies h/o OK, PE/DVT, stent placement, or CABG. ROS: as noted SHx: Distant smoking/tobacco history. Denies Etoh, IVDA Allergies: NKDA Past History - Travel Traveled outside of the country in the last 30 days: No Close contact w/someone who was outside of country & ill: No - Past Medical History Allergies/Adverse Reactions: Allergies Allergy/AdvReac Type Severity Reaction Status Date / Time No Known Allergies Allergy Verified 03/27/19 13:55 Home Medications: Ambulatory Orders Ropinirole HCl 1 mg PO QID 11/03/16 Safinamide Mesylate [Xadago] 100 mg PO DAILY 02/15/19 Carbidopa/Levodopa [Carbidopa-Levodopa 25-250 Tab] 1 each PO QID 03/27/19 Anemia: No Asthma: No Cancer: No Cardiac Disorders: No CVA: No COPD: No CHF: No Dementia: No Diabetes: No GI Disorders: No Disorders: No HTN: Yes Hypercholesterolemia: Yes Liver Disease: No Seizures: No Thyroid Disease: No - Surgical History Abdominal Surgery: No Appendectomy: No Cardiac Surgery: No Cholecystectomy: No Lung Surgery: No Neurologic Surgery: No Orthopedic Surgery: No - Suicide/Smoking/Psychosocial Hx Smoking History: Never smoked Have you smoked in the past 12 months: No Information on smoking cessation initiated: No Hx Alcohol Use: No Drug/Substance Use Hx: No Substance Use Type: Alcohol Hx Substance Use Treatment: No Review of Systems - Review of Systems Able to Perform ROS?: Yes Is the patient limited [place]er proficient: Yes Constitutional: No: Chills, Diaphoresis, Fever, Malaise, Weakness HEENTM: Yes: See HPI Respiratory: No: Cough, Shortness of Breath, Wheezing Cardiac (ROS): No: Chest Pain, Edema, Irregular Heart Rate, Palpitations, Syncope, Chest Tightness ABD/GI: No: Abdominal Distended, Constipated, Diarrhea, Nausea, Poor Appetite, Poor Fluid Intake, Vomiting : No: Burning, Dysuria, Pain Musculoskeletal: No: Back Pain, Joint Pain, Neck Pain Integumentary: No: Bruising, Change in Color, Flushing, Lesions Neurological: No: Headache, Numbness, Tingling All Other Systems: Reviewed and Negative *Physical Exam - Vital Signs Last Vital Signs Temp Pulse Resp BP Pulse Ox 97.5 F L 85 20 122/66 95 04/19/19 13:07 04/19/19 13:07 04/19/19 13:07 04/19/19 13:07 04/19/19 13:07 - Physical Exam Comments: 04/19/19 14:07 Vitals reviewed, afebrile, hemodynamically stable Gen: elderly woman, laying in stretcher, appears stated age HEENT: Normocaphalic, dried blood at nares without evident septal hematoma / laceration, nontender facial bones, no hematoma or bony depressions, no active bleeding or lacerations. No jaw or tooth tenderness. EOMI. No cervical spine tenderness or gross deformity. CV: RRR, normal s1/s2, no murmurs rubs or gallops appreciated Pulm: CTABL, no wheezes / rales / rhonchi Abd: soft, nontender, nondistended Pulses: 2+ radial, PT Ext: warm and well perfused, no clubbing / cyanosis / edema, MSK: bilateral knees with swelling, normal ROM, no warmth / erythema / ecchymosis Neuo: alert and oriented, CN grossly intact, MAEE ED Treatment Course - RADIOLOGY Radiology Studies Ordered: Category Date Time Status FACIAL BONES CT W/O CONTRAST [CT] Stat CT Scan 04/19/19 13:[address] WITHOUT CONTRAST [CT] Stat CT Scan 04/19/19 13:41 Ordered KNEE 3 POS-LEFT [RAD] Stat Radiology 04/19/19 13:41 Ordered KNEE 3 POS-RIGHT [RAD] Stat Radiology 04/19/19 13:41 Ordered Medical Decision Making - Medical Decision Making 04/19/19 14:15 78yo female with pmh Parkinson's disease, HLD who presents s/p unwitnessed, mechanical fall from standing with subsequent LOC after contact. Pt without tenderness on exam, stable vitals, no cardiac history or symptoms, no prodrome or post-fall mental status changes. Multiple recent falls in setting of Parkinson's, generally without presentation, presenting today for evaluation of possible facial fracture. Will evaluate for subdural / other intracranial process and r/o knee fractures. -NCHCT, Facial Bones -3 View Xray bilateral knees 04/19/19 15:31 -Knee films without evidence of acute fracture -NCHCT without evidence of acute intracranial hemorrhage, edema, midline shift, mass effect, or skull fracture -Facial Bones without evidence of acute facial fracture 04/19/19 15:36 -Patient and family updated -Discussed return precautions, verbalized understanding Dispo: home with PCP/Neuro followup *DC/Admit/Observation/Transfer Diagnosis at time of Disposition: Fall Qualifiers: Encounter type: initial encounter Qualified Code(s): W19.XXXA - Unspecified fall, initial encounter Contusion of face Qualifiers: Encounter type: initial encounter Qualified Code(s): S00.83XA - Contusion of other part of head, initial encounter Contusion of knee, left Qualifiers: Encounter type: initial encounter Qualified Code(s): S80.02XA - Contusion of left knee, initial encounter Contusion of knee, right Qualifiers: Encounter type: initial encounter Qualified Code(s): S80.01XA - Contusion of right knee, initial encounter - Discharge Dispostion Disposition: HOME Condition at time of disposition: Stable Decision to Admit order: No - Referrals - Patient Instructions Printed Discharge Instructions: DI for Closed Head Injury Additional Instructions: You were seen and evaluated in the ED after a mechanical fall from standing. Your head CT was negative for a bleed and your facial CT negative for fracture. Have a family member wake you every 3 hours overnight to make sure you're arousable and have someone with you for the next 24 hours to check that you do not have an altered mental status. Continue to take over the counter pain medications such as Tylenol or Motrin as directed on the bottle for pain relief. Please arrange followup within the next week with your primary care provider if your symptoms persist. Please return to the emergency room if family notices a change in your behavior , you lose consciousness, develop a headache, experience changes in your vision , persistent vomiting, or if you experience any other new or concerning symptoms. - Post Discharge Activity
== END | disposition home or self-care (01) ==
LOC: FER 13:07
DX: S00.83XA Contusion of other part of head, initial encounter (principal); S80.02XA Contusion of left knee, initial encounter; S80.01XA Contusion of right knee, initial encounter; E78.5 Hyperlipidemia, unspecified; G20 Parkinson's disease; I10 Essential (primary) hypertension; W18.09XA Striking against other object with subsequent fall, initial encounter; Y93.89 Activity, other specified; Y92.89 Other specified places as the place of occurrence of the external cause
CPT/HCPCS: 70450-TC; 70486-TC; 73562-TC-LT-FY; 73562-TC-RT-FY; 99281-25

== ENCOUNTER 2019-10-26 10:57 | Inpatient (IN) | payer OTHER, BC ==
[2019-10-26 11:25] VITALS: BMI 21.1
--- NOTE | 2019-10-26 11:38 | PDOC ---
History of Present Illness - General Chief Complaint: Injury Stated Complaint: FELL IN BATHROOM INJURED RIGHT HIP AND KNEES Time Seen by Provider: 10/26/19 11:00 - History of Present Illness Initial Comments: 10/26/19 11:44 79yo female biba from home. Pt states she feel after getting up from the toilet. States she has parkinsons, states she left her walker outside the bathroom and states she stood up from the bathroom and was turning around when she fell landing on her R side. Pt denies hitting her head or loc. Pt is no on anticoags. Pt states she also fell 2 days ago and jimenez her knee. Pt denies head injury or loc at that time. Per the son, the home health aide was with her when she fell 2 days ago. Pt this am was alone when she fell in the bathroom. Per the son, the parkinsons has been worsening and he is concerned she can no longer live alone. Pt has never broken her hip or a bone in the past. PMD Dr. Lux, Neuro: Dr. Herr. Pt denies headache. No neck or back pain. No cp/sob. No abd pain. No n/v/d. No dysuria. Pt with R hip pain. Pt with shortened externally rotated R hip. Past History - Past Medical History Allergies/Adverse Reactions: Allergies Allergy/AdvReac Type Severity Reaction Status Date / Time No Known Allergies Allergy Verified 10/26/19 11:00 Home Medications: Ambulatory Orders Safinamide Mesylate [Xadago] 100 mg PO DAILY 02/15/19 Carbidopa/Levodopa [Carbidopa-Levodopa 25-250 Tab] 1 each PO QID 03/27/19 Ropinirole HCl 0.5 mg PO QID 10/26/19 Simvastatin 20 mg PO DAILY 10/26/19 Anemia: No Asthma: No Cancer: No Cardiac Disorders: No CVA: No COPD: No CHF: No Dementia: No Diabetes: No GI Disorders: No Disorders: No HTN: Yes Hypercholesterolemia: Yes Liver Disease: No Seizures: No Thyroid Disease: No Other medical history: PARKINSON'S - Surgical History Abdominal Surgery: No Appendectomy: No Cardiac Surgery: No Cholecystectomy: No Lung Surgery: No Neurologic Surgery: No Orthopedic Surgery: No - Psycho Social/Smoking Cessation Hx Smoking History: Never smoked Have you smoked in the past 12 months: No Information on smoking cessation initiated: No Hx Alcohol Use: No Drug/Substance Use Hx: No Substance Use Type: Alcohol Hx Substance Use Treatment: No Review of Systems - Review of Systems Able to Perform ROS?: Yes Is the patient limited Dutch proficient: No Constitutional: No: Chills, Fever HEENTM: No: Eye Pain, Blurred Vision, Ear Pain, Nose Pain, Nose Congestion, Throat Pain Respiratory: No: Cough, Shortness of Breath Cardiac (ROS): No: Chest Pain, Palpitations, Syncope ABD/GI: No: Diarrhea, Nausea, Vomiting, Abdominal cramping : No: Burning, Dysuria Musculoskeletal: Yes: Joint Pain (R hip pain). No: Back Pain, Neck Pain Integumentary: Yes: Other (abrasion/skin tear R knee). No: Bruising Neurological: Yes: Tremors (hx of parkinsons, not new), Unsteady Gait (hx of parkinsons, not new). No: Headache, Numbness, Paresthesia All Other Systems: Reviewed and Negative *Physical Exam - Vital Signs Last Vital Signs Temp Pulse Resp BP Pulse Ox 98.1 F 97 H 16 161/78 99 10/26/19 10:59 10/26/19 10:59 10/26/19 10:59 10/26/19 10:59 10/26/19 10:59 - Physical Exam General Appearance: Yes: Nourished, Appropriately Dressed. No: Apparent Distress HEENT: positive: EOMI, Normal Voice Neck: positive: Supple. negative: Tender lateral, Tender midline Respiratory/Chest: positive: Lungs Clear, Normal Breath Sounds. negative: Respiratory Distress Cardiovascular: positive: Regular Rhythm, Regular Rate, S1, S2. negative: Edema Gastrointestinal/Abdominal: positive: Soft, Tenderness (suprapubic). negative: Guarding, Rebound Musculoskeletal: negative: Vertebral Tenderness Extremity: positive: Normal Capillary Refill, Other (R lateral hip ttp, R groin ttp, shortened externally rotated RLE, pulses intact, neurovasc intact distal, skin tear/abrasion R knee, FROM of LLE, FROM of UE b/l). negative: Swelling Integumentary: positive: Other (skin tear/abrasion to R knee- no active bleeding ) Neurologic: positive: oven tender II-XII NML intact, Fully Oriented, Alert, Normal Mood/ Affect, Other (no new focal neuro deficit) Heart Score/ECG Review - ECG Intrepretation Comment:: 10/26/19 13:59 sinus tach at 102, nl axis, nl interval, no acute st/t wave findings ED Treatment Course - LABORATORY CBC & Chemistry Diagram: 10/26/19 11:50 10/26/19 11:50 Medical Decision Making - Medical Decision Making 10/26/19 11:49 a/p: 79yo female with a fall in the bathroom -suspect fall from Parkinsons/without her walker -denies near syncope/prodrome prior to falling -pt with a dizzy episode resulting in a fall 2 days ago, but not today -shortened externally rotated RLE, concern for hip fx from the fall -will send labs, head ct, c spine ct given dizzy and fall x 2 -will send labs, preop labs -xrays -npo -ivf hydration, pain control -will most likely need admission 10/26/19 12:[address] head [address] pending xrays 10/26/19 12:30 labs reviewed trop pending hgb stable, no elevated wbc 10/26/19 13:24 no acute c spine findings 10/26/19 13:42 acute R hip fx on xray discussed with Dr. Boggs from orthopedics who will operate today at 4p microblog sent to [facility] for admission 10/26/19 13:54 pt and family updated last po intake was last night 10/26/19 13:59 case discussed with Ting from [facility] who accepts pt to service under Dr. Holley Anesthesia at the bedside for pre-op will give sinemet in the Er Discharge - Discharge Information Problems reviewed: Yes Clinical Impression/Diagnosis: Hip fracture, Parkinsons disease Contusion of knee, right Qualifiers: Encounter type: initial encounter Qualified Code(s): S80.01XA - Contusion of right knee, initial encounter Fall Qualifiers: Encounter type: initial encounter Qualified Code(s): W19.XXXA - Unspecified fall, initial encounter Condition: Fair - Admission Yes - Follow up/Referral - Patient Discharge Instructions - Post Discharge Activity
[2019-10-26] MEDS ORDERED: SODIUM CHLORIDE 0.9% 1000 ML INFUS.BAG IV ONE (11:41)
[2019-10-26] MEDS ORDERED: ACETAMINOPHEN 1000 MG/100 ML VIAL (NON FORMULARY) IVPB ONE (11:41)
[2019-10-26] MEDS ORDERED: ACETAMINOPHEN INJECTION 100 ML IVPB ONE (11:59)
[2019-10-26 12:17] LABS: MEAN PLT VOLUME 8.6 fl (7.5-11.1)
[2019-10-26 12:19] LABS: HEMATOCRIT 39.2 % (32.4-45.2); HEMOGLOBIN 12.8 GM/dl (10.7-15.3); MCH 33.2 pg (25.7-33.7); MCHC 32.8 g/dl (32.0-36.0); MEAN CELL VOLUME 101.2 fl (80-96); PLATELET COUNT 225 K/MM3 (134-434); RBC 3.87 M/mm3 (3.60-5.2); RDW 12.2 % (11.6-15.6); WHITE BLOOD COUNT 8.8 K/mm3 (4.0-10.8)
[2019-10-26 12:23] LABS: BILIRUBIN,TOTAL 0.8 mg/dl (0.2-1); CALCIUM 9.2 mg/dl (8.5-10); CREATININE 0.6 mg/dl (0.55-1.3); POTASSIUM 4.4 mmol/L (3.5-5.1)
[2019-10-26 12:25] LABS: INR 1.04 (0.82-1.09); PROTHROMBIN TIME (PATIENT) 11.6 SEC (10.2-13.0)
[2019-10-26 13:49] LABS: PLATELET ESTIMATE ADEQUATE
--- NOTE | 2019-10-26 13:51 | HP ---
CHIEF COMPLAINT: Right hip pain PCP: Dr. Kennedy Neuro: Dr. Herr HISTORY OF PRESENT ILLNESS: 79 year-old female with a PMH significant for HLD and Parkinson's disease, was BIBA from home following a mechanical fall at home. Patient left her walker outside her bathroom. As she got up from the toilet and turned, she fell on her right side. She denies hitting her head, denies LOC, denies prodromal symptoms. Patient had a fall 2 days ago, witnessed by her home health aide. ER course was notable for: (1) Xray right hip/pelvis: acute right femoral intertrochanteric fracture Recent Travel: No PAST MEDICAL HISTORY: Hyperlipidemia Parkinson's PAST SURGICAL HISTORY: Cataracts Social History: lives alone with 2 home health aides; supportive adult sons ( Farhan, ) and Robert ([phone]). Smoking: never Alcohol: no Drugs: no Family history: non-contributory Allergies No Known Allergies Allergy (Verified 10/26/19 11:00) HOME MEDICATIONS: Home Medications Medication Instructions Recorded Safinamide Mesylate [Xadago] 100 mg PO DAILY 02/15/19 Carbidopa/Levodopa 1 each PO QID 03/27/19 [Carbidopa-Levodopa 25-250 Tab] Ropinirole HCl 0.5 mg PO QID 10/26/19 Simvastatin 20 mg PO DAILY 10/26/19 REVIEW OF SYSTEMS CONSTITUTIONAL: Absent: fever, chills, diaphoresis, generalized weakness, malaise, loss of appetite, weight change HEENT: Absent: rhinorrhea, nasal congestion, throat pain, throat swelling, difficulty swallowing, mouth swelling, ear pain, eye pain, visual changes CARDIOVASCULAR: Absent: chest pain, syncope, palpitations, irregular heart rate, lightheadedness , peripheral edema RESPIRATORY: Absent: cough, shortness of breath, dyspnea with exertion, orthopnea, wheezing, stridor, hemoptysis GASTROINTESTINAL: Absent: abdominal pain, abdominal distension, nausea, vomiting, diarrhea, constipation, melena, hematochezia GENITOURINARY: Absent: dysuria, frequency, urgency, hesitancy, hematuria, flank pain, genital pain MUSCULOSKELETAL: +right hip pain Absent: myalgia, arthralgia, joint swelling, back pain, neck pain SKIN: Absent: rash, itching, pallor HEMATOLOGIC/IMMUNOLOGIC: Absent: easy bleeding, easy bruising, lymphadenopathy, frequent infections ENDOCRINE: Absent: unexplained weight gain, unexplained weight loss, heat intolerance, cold intolerance NEUROLOGIC: Absent: headache, focal weakness or paresthesias, dizziness, unsteady gait, seizure, mental status changes, bladder or bowel incontinence PSYCHIATRIC: Absent: anxiety, depression, suicidal or homicidal ideation, hallucinations. PHYSICAL EXAMINATION Vital Signs - 24 hr 10/26/19 10:59 Temperature 98.1 F Pulse Rate 97 H Respiratory 16 Rate Blood Pressure 161/78 O2 Sat by Pulse 99 Oximetry (%) GENERAL: Awake, alert, and fully oriented, in no acute distress. Reports right hip pain getting better following morphine administraton. NEURO: Dysarthric speech HEAD: Normal with no signs of trauma. EYES: Pupils equal, round and reactive to light, extraocular movements intact, sclera anicteric, conjunctiva clear. LUNGS: Anterior breath sounds equal, clear to auscultation bilaterally. No wheezes, and no crackles. No accessory muscle use. HEART: Regular rate and rhythm, normal S1 and S2 ABDOMEN: Soft, nontender, not distended UPPER EXTREMITIES: 2+ pulses, warm, well-perfused. No cyanosis. No clubbing. No peripheral edema. LOWER EXTREMITIES: 2+ pulses, warm, well-perfused. No calf tenderness. No peripheral edema. RLE shortened and externally rotated Laboratory Results - last 24 hr 10/26/19 10/26/19 10/26/19 11:50 11:50 11:50 WBC RBC Hgb Hct MCV MCH MCHC RDW Plt Count MPV Absolute Neuts (auto) Neutrophils % Neutrophils % (Manual) Lymphocytes % Lymphocytes % (Manual) Monocytes % (Manual) Eosinophils % (Manual) Myelocytes % (Man) Metamyelocytes Platelet Estimate PT with INR INR PTT (Actin FS) 27.9 Sodium 139 Potassium 4.4 Chloride 107 Carbon Dioxide 25 Anion Gap 7 L BUN 24.0 H Creatinine 0.6 Est GFR (CKD-EPI)AfAm 99.77 Est GFR (CKD-EPI)NonAf 86.09 Random Glucose 95 Calcium 9.2 Magnesium 2.0 Total Bilirubin 0.8 AST 30 ALT 6 L Alkaline Phosphatase 77 Creatine Kinase 492 H Creatine Kinase Index 2.5 CK-MB (CK-2) 12.7 H Troponin I < 0.03 Total Protein 7.0 Albumin 4.0 Blood Type Antibody Screen 10/26/19 10/26/19 10/26/19 11:50 11:50 11:50 WBC 8.8 RBC 3.87 Hgb 12.8 Hct 39.2 MCV 101.2 H MCH 33.2 MCHC 32.8 RDW 12.2 Plt Count 225 MPV 8.6 Absolute Neuts (auto) 7.4 Neutrophils % No Result Required. Neutrophils % (Manual) 80.0 Lymphocytes % No Result Required. Lymphocytes % (Manual) 12.0 Monocytes % (Manual) 4 Eosinophils % (Manual) 1.0 Myelocytes % (Man) 1 Metamyelocytes 2 Platelet Estimate Adequate PT with INR 11.6 INR 1.04 PTT (Actin FS) Sodium Potassium Chloride Carbon Dioxide Anion Gap BUN Creatinine Est GFR (CKD-EPI)AfAm Est GFR (CKD-EPI)NonAf Random Glucose Calcium Magnesium Total Bilirubin AST ALT Alkaline Phosphatase Creatine Kinase Creatine Kinase Index CK-MB (CK-2) Troponin I Total Protein Albumin Blood Type O POSITIVE Antibody Screen Negative 10/26/19 11:55 WBC RBC Hgb Hct MCV MCH MCHC RDW Plt Count MPV Absolute Neuts (auto) Neutrophils % Neutrophils % (Manual) Lymphocytes % Lymphocytes % (Manual) Monocytes % (Manual) Eosinophils % (Manual) Myelocytes % (Man) Metamyelocytes Platelet Estimate PT with INR INR PTT (Actin FS) Sodium Potassium Chloride Carbon Dioxide Anion Gap BUN Creatinine Est GFR (CKD-EPI)AfAm Est GFR (CKD-EPI)NonAf Random Glucose Calcium Magnesium Total Bilirubin AST ALT Alkaline Phosphatase Creatine Kinase Creatine Kinase Index CK-MB (CK-2) Troponin I Total Protein Albumin Blood Type O POSITIVE Antibody Screen ASSESSMENT/PLAN 79 year-old female with a PMH significant for HLD and Parkinson's disease, admitted for acute right femoral intertrochanteric fracture. Acute right femoral intertrochanteric fracture --to OR this afternoon with Dr. Arguello --CXR unremarkable --ECG: sinus tach --only previous surgery was for cataracts, no reported problems with anesthesia --no cardiac history, not on anti-hypertensives, not on beta blockers --benefits of planned procedure outweight relative risks, medically optimized for emergent surgery Parkinson's disease --continue carbidopa/levodopa, safinamide, and ropinirole Hyperlipidemia --continue simvastatin FEN Fluids: LR @ 75mL/hr Electrolytes: replete as indicated Nutrition: NPO Physical therapy DVT prophylaxis: hod chemical prophylaxis for now pending surgery Dispo: continues to require inpatient care. Full code. Visit type - Emergency Visit Emergency Visit: Yes ED Registration Date: 10/26/19 Care time: The patient presented to the Emergency Department on the above date and was hospitalized for further evaluation of their emergent condition. - New Patient This patient is new to me today: Yes Date on this admission: 10/26/19 - Critical Care Critical Care patient: No
[2019-10-26] MEDS ORDERED: ONDANSETRON 4 MG/2 ML VIAL IVPUSH ONE (13:54)
[2019-10-26] MEDS ORDERED: morphine CARPU-JECT 4 MG/1 ML DISP.SYRIN IVPUSH ONE (13:54)
[2019-10-26] MEDS ORDERED: morphine SULFATE 4 MG/ML VIAL ONE (13:56)
[2019-10-26] MEDS ORDERED: ONDANSETRON 4 MG/2 ML VIAL ONE (13:56)
[2019-10-26] MEDS ORDERED: CARBIDOPA/LEVODOPA 25/250 TABLET (FP) PO ONE (13:58)
[2019-10-26] MEDS: CARBIDOPA/LEVODOPA 25/250 TABLET (FP) PO SCH ×2 (14:00→22:06)
--- NOTE | 2019-10-26 15:00 | CONSULT ---
Consult - text type - Consultation Consultation Note: ORTHOPEDIC SURGERY CONSULTATION NOTE Department of Orthopedic Surgery HISTORY OF PRESENT ILLNESS Sera Sevilla is an 79 year old female with a past medical history of Parkinson Disease and hyperlipidemia who is admitted to [facility] with a right hip fracture. The orthopedic service was consulted for evaluation of the right hip. The injury occurred this morning after a mechanical fall. The patient notes pain in the right hip. Denies any other injuries. Denies numbness , tingling or other constitutional complaints. Denies tobacco use, drug use, alcohol abuse. The patient lives with family and uses a walker at baseline. Her sons are at the [facility] (Farhan, ) and Robert ([phone]). Active Problems Problem Status Category Onset Hip fracture Acute Medical Past Surgical History Denies Social History Smoking history Never smoked Hx Alcohol Use No Allergies Allergy/AdvReac Type Severity Reaction Status Date / Time No Known Allergies Allergy Verified 10/26/19 11:00 Active Medications Generic Name Dose Route Start Last Admin Trade Name Fredq PRN Reason Stop Dose Admin Atorvastatin Calcium 10 mg 10/26/19 22:00 Lipitor - PO HS SHEELA Carbidopa/Levodopa 1 each 10/26/19 14:00 Sinemet 25/250 - PO QID SHEELA Non-Formulary Medication 100 mg 10/27/19 10:00 Safinamide Mesylate [Xadago] PO DAILY SHEEAL Ropinirole HCl 0.5 mg 10/26/19 14:00 Requip - PO QID SHEELA Vital Signs (last) Temp Pulse Resp BP Pulse Ox 98.1 F 100 H 18 142/66 97 10/26/19 10:59 10/26/19 13:55 10/26/19 13:55 10/26/19 13:55 10/26/19 13:55 Intake and Output 10/24/19 10/25/19 10/26/19 23:59 23:59 23:59 Intake Total 1100 Balance 1100 Intake: IV 1000 SALINE LOCK 1000 IVPB 100 Other: # Unmeasured Voids Void 1 Weight 127 lb Height 5 ft 5 in Body Mass Index (BMI) 21.1 Weight Measurement Method Est/Stated by Patient Laboratory 10/26/19 11:50 10/26/19 11:50 PT with INR 11.6 SEC (10.2-13.0) 10/26/19 11:50 PTT (Actin FS) 27.9 SECONDS (25.2-36.5) 10/26/19 11:50 FAMILY HISTORY Reviewed and noncontributory. REVIEW OF SYMPTOMS A twelve-point review of systems was performed and was negative except as noted in HPI. PHYSICAL EXAM Constitutional: Alert and oriented to person, place, and time. Appears well- developed and well-nourished. No acute distress, appropriate mood and affect. HEENT: Normocephalic, atraumatic Cardiovascular: Regular rate and rhythm, extremities warm, no cyanosis. Pulmonary: Breathing comfortably, normal air movement, no audible wheezing. Right Upper Extremity: No tenderness to palpation. Full passive and active ROM, free from pain. Left Upper Extremity: No tenderness to palpation. Full passive and active ROM, free from pain. Right Lower Extremity: Extremity shortened and externally rotated. Skin warm, dry, and intact; no lesions, rashes or ulcers noted. Muscle mass equal and symmetric to contralateral side. No atrophy noted. No masses or effusions noted. + log roll and heel strike; nontender throughout rest of extremity. No cords or calf tenderness No significant calf/ankle edema. Full passive and active ROM, free from pain. Joints stable with no pathologic laxity. EHL/TA/GS motor intact; SILT distally; 2+ DP pulses; Cap refill brisk. Tone and reflexes normal. Left Lower Extremity: Skin warm, dry, and intact; no lesions, rashes or ulcers noted. Muscle mass equal and symmetric to contralateral side. No atrophy noted. No masses or effusions noted. No tenderness to palpation. No cords or calf tenderness.No significant calf/ankle edema. Full passive and active ROM, free from pain. Joints stable with no pathologic laxity. EHL/TA/GS motor intact; SILT distally; 2+ DP pulses; Cap refill brisk. Tone and reflexes normal. IMAGING I personally reviewed all radiographs, CT, and other imaging. They demonstrate a right sided basicervical femoral neck fracture. There are degenrative changes of the cervical spine without evidence of fracture or dislocation. ASSESSMENT AND PLAN Sera Sevilla is an 79 year old female presenting status post mechanical fall with a right sided basicervical femoral neck fracture. We have reviewed the imaging and clinical findings in detail, as well as their potential implications. This is an operative fracture. - Plan for right hip intramedullary nail. - Appreciate medical management; patient is medically optimized as per medical team. - NPO - NWB RLE - Type and Screen/2 units PRBC on hold - LR 84cc/hr - Dorsey to gravity All questions were answered. Thank you for involving our team in the care of this patient. Please call us at [phone] with questions
[2019-10-26] MEDS ORDERED: MIDAZOLAM HCL 2 MG/2 ML SINGLE DOSE VIAL ONE (15:36)
[2019-10-26] MEDS ORDERED: BUPIVACAINE HCL/PF 0.5% (5MG/ML) 10 ML VIAL ONE (15:36)
[2019-10-26] MEDS ORDERED: PROPOFOL 20 ML ONE (15:45)
[2019-10-26] MEDS ORDERED: ceFAZolin SODIUM 1 GM VIAL ONE (15:56)
[2019-10-26] MEDS ORDERED: ONDANSETRON 4 MG/2 ML VIAL IVPUSH PRN (17:11)
[2019-10-26] MEDS ORDERED: oxyCODONE HCL 5 MG TABLET PO PRN (17:15)
[2019-10-26] MEDS ORDERED: DOCUSATE SODIUM 100 MG CAPSULE (FP) PO PRN (17:15)
--- NOTE | 2019-10-26 17:22 | OPR ---
TITLE OF OPERATION: Right cephalomedullary nail fixation (CPT 62859) PREOPERATIVE DIAGNOSIS: Right intertrochanteric hip fracture POSTOPERATIVE DIAGNOSIS: Right intertrochanteric hip fracture SURGEON: Suhail Arguello DO MORGUE ATTENDANT: Filippo Boggs DO ANESTHESIA: Spinal SPECIMEN (BACTERIOLOGICAL, PATHOLOGICAL OR OTHER): None PROSTHETIC DEVICE/IMPLANT: 125 degree x 10 mm x 170 mm [place] Gamma nail 90 mm lag screw 35 mm locking screw COMPLICATIONS: none EBL: 25 mL INDICATIONS FOR SURGERY: Sera Sevilla is an 79 year old female who presented in the preoperative setting with a right hip intertrochanteric fracture. Based on their pre-injury level of activity, surgical treatment was discussed. The risks and benefits of surgery and anesthesia were discussed in detail including but not limited to pain, bleeding, infection, scarring, damage to vessels and nerves, failure to obtain the desired result, failure to heal, failure to return to sport. Understanding the risks and benefits, she and her family opted to proceed with surgical management. SURGEON'S NARRATIVE: Sera Sevilla was seen in the preoperative area. Their right side was marked for surgery and consent was reviewed and signed. The patient was then brought back to the operating room. She was transferred to the OR table. All bony prominences were well padded. A time-out was held and all team members agreed on the operative side and planned procedure. Anesthesia was then induced. Preoperative prophylactic antibiotics were indicated and Ancef 2 grams were given prior to and within one hour of any incision. Sequential compression devices were placed on the contralateral extremity for the duration of the case as part of a comprehensive DVT prophylaxis protocol consisting of intraoperative SCDs, early postoperative mobilization and lovenox for chemoprophylaxis. Under fluoroscopy, the fracture was reduced by traction and internal rotation with slight adduction. After reduction was achieved, the hip was prepped and draped in the usual sterile fashion with application of a shower curtain. A small incision was made over directly over the proximal aspect of the hip, centered over just proximal to the prominence of the tip of the greater trochanter. This was done using a 10 blade. It was carried through the skin and subcutaneous tissues. Further dissection was performed using the Peoples scissors. The guide pin for the Gamma Nail System was then inserted from the tip of the greater trochanter and into the proximal femoral canal. The opening reamer was then placed over the guidepin and used to make an opening in the proximal femur. The guidepin was then removed. A 125-degree x 10mm x 170mm gamma nail was selected. The Gamma Nail was inserted into the femoral canal into its appropriate position. Using the proximal targeting device, a 1.5-cm longitudinal incision was made directly over the lateral aspect of the proximal thigh using the 10 blade, with dissection using the hemostat to the lateral femur. A guidepin for the lag screw was then inserted from the lateral femur across the fracture site and into the femoral head and its appropriate position verified using C-arm guidance in both the AP and lateral planes. After pre-drilling, a 90-mm lag screw was then inserted over the guidepin and across the fracture site for definitive fixation. The guidepin was then removed. A set screw was then inserted into the top of the nail and completed turned, then turned back a half turn. The fracture site was appropriately compressed. The proximal targeting system was then removed. Attention was then turned to placing the distal screw. The guide was adjusted and using the 10 blade an incision was made directly over the lateral aspect of the thigh, with dissection using the hemostat to the lateral femur. A guidepin for the distal locking screw was then inserted from the lateral femur across the fracture site and into the femoral shaft and its appropriate position verified using C-arm guidance in both the AP and lateral planes. After pre- drilling, a 35-mm locking screw was then inserted over the guidepin and across the nail for definitive fixation. The guidepin was then removed. Appropriate position of the interlocking screws, the lag screw, the nail, and the fracture site was verified using C-arm guidance. Attention was then turned to closure. The incisions were copiously irrigated with sterile saline. Deep tissue was closed with 0 vicryl. Subcutaneous closure was achieved with 2-0 vicryl. Skin was closed with darrell. At closure , all needle counts and sponge counts were correct. The toes were warm and well -perfused at the end of the case. Attestation: Dr. Filippo Boggs acted as the certified surgical tech/first assistant for this case. There was no qualified resident shrink pit operator available to scrub into the case. She was then awoken and brought to the postoperative recovery room in stable condition. There was no complications immediately apparent. POSTOPERATIVE PLAN - Weightbearing as tolerated - Pain control with oxycodone 5-10mg by mouth every 6 hours as needed for pain - Comprehensive DVT prophylaxis consists of intraoperative SCDs, early postoperative mobilization and lovenox 40 mg daily for chemoprophylaxis ( continue for 35 days postoperatively). - Follow-up as an outpatient in 2 weeks for wound check, removal of darrell (POD #14), and new x-rays.
[2019-10-26] MEDS ORDERED: ACETAMINOPHEN 1000 MG/100 ML VIAL (NON FORMULARY) IVPB PRN (17:51)
[2019-10-26] MEDS: LACTATED RINGERS SOLUTION 1,000 ML IV SCH (18:00)
[2019-10-26] MEDS: ATORVASTATIN CA 10 MG TABLET (FP) PO SCH (22:06)
[2019-10-26] MEDS: rOPINIRole HCL 1 MG TABLET (FP) PO SCH (22:08)
[2019-10-27] MEDS: oxyCODONE HCL 5 MG TABLET PO PRN ×3 (01:43→13:23)
[2019-10-27] MEDS: rOPINIRole HCL 0.5 MG TABLET PO SCH ×2 (07:08→07:09)
[2019-10-27] MEDS: CARBIDOPA/LEVODOPA 25/250 TABLET (FP) PO SCH ×5 (07:08→21:29)
--- NOTE | 2019-10-27 07:20 | PN ---
Physical Exam: SUBJECTIVE: Patient seen and examined oob to chair, eating breakfast. Reports feeling comfortable, no pain. OBJECTIVE: Vital Signs Period Temp Pulse Resp BP Sys/Harrison Pulse Ox Last 24 Hr 97.5 F-98.2 F 72-100 14-19 101-161/40-78 95-100 GENERAL: The patient is awake, alert, and fully oriented, in no acute distress. LUNGS: Breath sounds equal, clear to auscultation bilaterally, no wheezes, no crackles, no accessory muscle use. HEART: Regular rate and rhythm, S1, S2 ABDOMEN: Soft, nontender, nondistended RLE: Surgical dressing c/d/i NEUROLOGICAL: Cranial nerves II through XII grossly intact. Laboratory Results - last 24 hr 10/26/19 10/26/19 10/26/19 11:50 11:50 11:50 WBC RBC Hgb Hct MCV MCH MCHC RDW Plt Count MPV Absolute Neuts (auto) Neutrophils % Neutrophils % (Manual) Lymphocytes % Lymphocytes % (Manual) Monocytes % (Manual) Eosinophils % (Manual) Myelocytes % (Man) Metamyelocytes Platelet Estimate PT with INR INR PTT (Actin FS) 27.9 Sodium 139 Potassium 4.4 Chloride 107 Carbon Dioxide 25 Anion Gap 7 L BUN 24.0 H Creatinine 0.6 Est GFR (CKD-EPI)AfAm 99.77 Est GFR (CKD-EPI)NonAf 86.09 Random Glucose 95 Calcium 9.2 Magnesium 2.0 Total Bilirubin 0.8 AST 30 ALT 6 L Alkaline Phosphatase 77 Creatine Kinase 492 H Creatine Kinase Index 2.5 CK-MB (CK-2) 12.7 H Troponin I < 0.03 Total Protein 7.0 Albumin 4.0 Urine Color Urine Appearance Urine pH Urine Protein Urine Glucose (UA) Urine Ketones Urine Blood Urine Nitrite Urine Bilirubin Urine Urobilinogen Ur Leukocyte Esterase Urine RBC Urine WBC Urine Bacteria Blood Type Antibody Screen 10/26/19 10/26/19 10/26/19 11:50 11:50 11:50 WBC 8.8 RBC 3.87 Hgb 12.8 Hct 39.2 MCV 101.2 H MCH 33.2 MCHC 32.8 RDW 12.2 Plt Count 225 MPV 8.6 Absolute Neuts (auto) 7.4 Neutrophils % No Result Required. Neutrophils % (Manual) 80.0 Lymphocytes % No Result Required. Lymphocytes % (Manual) 12.0 Monocytes % (Manual) 4 Eosinophils % (Manual) 1.0 Myelocytes % (Man) 1 Metamyelocytes 2 Platelet Estimate Adequate PT with INR 11.6 INR 1.04 PTT (Actin FS) Sodium Potassium Chloride Carbon Dioxide Anion Gap BUN Creatinine Est GFR (CKD-EPI)AfAm Est GFR (CKD-EPI)NonAf Random Glucose Calcium Magnesium Total Bilirubin AST ALT Alkaline Phosphatase Creatine Kinase Creatine Kinase Index CK-MB (CK-2) Troponin I Total Protein Albumin Urine Color Urine Appearance Urine pH Urine Protein Urine Glucose (UA) Urine Ketones Urine Blood Urine Nitrite Urine Bilirubin Urine Urobilinogen Ur Leukocyte Esterase Urine RBC Urine WBC Urine Bacteria Blood Type O POSITIVE Antibody Screen Negative 10/26/19 10/26/19 11:55 15:05 WBC RBC Hgb Hct MCV MCH MCHC RDW Plt Count MPV Absolute Neuts (auto) Neutrophils % Neutrophils % (Manual) Lymphocytes % Lymphocytes % (Manual) Monocytes % (Manual) Eosinophils % (Manual) Myelocytes % (Man) Metamyelocytes Platelet Estimate PT with INR INR PTT (Actin FS) Sodium Potassium Chloride Carbon Dioxide Anion Gap BUN Creatinine Est GFR (CKD-EPI)AfAm Est GFR (CKD-EPI)NonAf Random Glucose Calcium Magnesium Total Bilirubin AST ALT Alkaline Phosphatase Creatine Kinase Creatine Kinase Index CK-MB (CK-2) Troponin I Total Protein Albumin Urine Color Yellow Urine Appearance Cloudy Urine pH 5.5 Urine Protein Negative Urine Glucose (UA) Negative Urine Ketones Trace Urine Blood 1+ H Urine Nitrite Negative Urine Bilirubin Negative Urine Urobilinogen 0.2 Ur Leukocyte Esterase Negative Urine RBC 10-20 Urine WBC 2-5 Urine Bacteria Many Blood Type O POSITIVE Antibody Screen Active Medications Generic Name Dose Route Start Last Admin Trade Name Jovani PRN Reason Stop Dose Admin Acetaminophen 1,000 mg 10/26/19 17:51 10/27/19 01:43 Ofirmev Injection - IVPB 10/27/19 17:51 1,000 mg Q6H PRN Administration PAIN LEVEL 1-5 Atorvastatin Calcium 10 mg 10/26/19 22:00 10/26/19 22:06 Lipitor - PO 10 mg HS SHEELA Administration Carbidopa/Levodopa 1 each 10/26/19 14:00 10/27/19 07:08 Sinemet 25/250 - PO Not Given QID SHEELA Docusate Sodium 100 mg 10/26/19 17:15 Colace - PO Q12H PRN CONSTIPATION Enoxaparin Sodium 40 mg 10/27/19 10:00 Lovenox - SQ DAILY [facility] Fentanyl 25 mcg 10/26/19 17:11 Sublimaze Injection - IVPUSH Q5M PRN PAIN-PACU ORDER X 4 DOSES ONLY Fentanyl 50 mcg 10/26/19 17:11 Sublimaze Injection - IVPUSH Q5M PRN PAIN-PACU ORDER X 4 DOSES ONLY Lactated Ringer's 1,000 mls @ 75 mls/hr 10/26/19 17:15 10/26/19 18:00 Lactated Ringers Solution IV 0 mls ASDIR SHEELA Administration Non-Formulary Medication 100 mg 10/27/19 10:00 Safinamide Mesylate [Xadago] PO DAILY [facility] Ondansetron HCl 4 mg 10/26/19 17:11 Zofran Injection IVPUSH Q6H PRN NAUSEA AND/OR VOMITING Oxycodone HCl 5 mg 10/26/19 17:15 10/27/19 01:43 Roxicodone - PO 5 mg Q3H PRN Administration PAIN LEVEL 1-5 Oxycodone HCl 10 mg 10/26/19 17:15 Roxicodone - PO Q3H PRN PAIN LEVEL 6-10 Ropinirole HCl 0.5 mg 10/26/19 22:00 10/26/19 22:08 Requip - PO 0.5 mg QID SHEELA Administration ASSESSMENT/PLAN 79 year-old female with a PMH significant for HLD and Parkinson's disease, admitted for acute right femoral intertrochanteric fracture. Acute right femoral intertrochanteric fracture --POD#1 --perioperative antibiotics complete --pain well-managed with PO meds --bowel regimen Parkinson's disease --continue carbidopa/levodopa, safinamide, and ropinirole Hyperlipidemia --continue simvastatin FEN Fluids: PO intake adequate Electrolytes: replete as indicated Nutrition: regular diet Physical therapy DVT prophylaxis: subq lovenox Dispo: continues to require inpatient care. Full code. Visit type - Emergency Visit Emergency Visit: Yes ED Registration Date: 10/26/19 Care time: The patient presented to the Emergency Department on the above date and was hospitalized for further evaluation of their emergent condition. - New Patient This patient is new to me today: No - Critical Care Critical Care patient: No
[2019-10-27 07:58] LABS: BASO % 0.1 % (0-2.0); EOS % 1.6 % (0-4.5); HEMATOCRIT 31.2 % (32.4-45.2); HEMOGLOBIN 10.4 GM/dl (10.7-15.3); LYMPH % 10.8 % (8-40); MCH 34.1 pg (25.7-33.7); MCHC 33.5 g/dl (32.0-36.0); MEAN CELL VOLUME 101.6 fl (80-96); MEAN PLT VOLUME 8.2 fl (7.5-11.1); MONO % 4.3 % (3.8-10.2); NEUT % 83.2 % (42.8-82.8); PLATELET COUNT 178 K/MM3 (134-434); RBC 3.07 M/mm3 (3.60-5.2); RDW 12.5 % (11.6-15.6); WHITE BLOOD COUNT 6.6 K/mm3 (4.0-10.8)
[2019-10-27 08:08] LABS: ALBUMIN 3.2 g/dl (3.4-5.0); BILIRUBIN,TOTAL 0.8 mg/dl (0.2-1); CALCIUM 8.5 mg/dl (8.5-10); CREATININE 0.7 mg/dl (0.55-1.3); MAGNESIUM 1.8 mg/dL (1.8-2.4); POTASSIUM 4.1 mmol/L (3.5-5.1); TOT PROT 5.8 g/dl (6.4-8.2)
[2019-10-27] MEDS: ENOXAPARIN NA (PORCINE) 40 MG/0.4 ML DISP.SYRIN SQ SCH (09:28)
[2019-10-27] MEDS: CEFAZOLIN 2 GM/D5W 2 GM/50 ML ML IVPB SCH ×2 (09:28→17:56)
[2019-10-27] MEDS: rOPINIRole HCL 1 MG TABLET (FP) PO SCH ×4 (09:28→21:29)
[2019-10-27] MEDS ORDERED: PATIENT'S OWN MEDICATION (NON-FORMULARY) (Simvastatin [Simvastatin] 20 MG) PO SCH (10:00)
[2019-10-27] MEDS ORDERED: SAFINAMIDE MESYLATE 100 MG PO SCH (10:00)
--- NOTE | 2019-10-27 11:55 | EKG ---
Test Reason : Blood Pressure : / mmHG Vent. Rate : 102 BPM Atrial Rate : 102 BPM P-R Int : 148 ms QRS Dur : 078 ms QT Int : 336 ms P-R-T Axes : 065 066 064 degrees QTc Int : 437 ms SINUS TACHYCARDIA OTHERWISE NORMAL ECG WHEN COMPARED WITH ECG OF 27-MAR-2019 13:50, NO SIGNIFICANT CHANGE WAS FOUND Confirmed by DOMINGO PARADA MD ([id number]) on 10/27/2019 11:54:53 AM Referred By: SHERIE STAUFFER Confirmed By:DOMINGO PARADA MD
[2019-10-27] MEDS: LACTATED RINGERS SOLUTION 1,000 ML IV SCH (17:56)
--- NOTE | 2019-10-27 18:00 | PN ---
Progress Note (short form) - Note Progress Note: ORTHOPEDIC SURGERY PROGRESS NOTE Department of Orthopedic Surgery SUBJECTIVE No acute events overnight. No complaints currently. Denies chest pain, shortness of breath, or calf pain. No nausea or vomiting. Tolerating oral intake. Pain control difficult overnight, but improving. PHYSICAL EXAMINATION General: Alert, oriented, cooperative and no distress. Lower Extremity: Dressing intact; Compartments soft. Muscle mass equal and symmetric to contralateral side. No atrophy noted. No masses or effusions noted. No tenderness to palpation. Gentle passive and active ROM, free from pain. EHL/TA/GS motor intact; SILT distally; 2+ DP pulses; Cap refill brisk. DVT Exam: No evidence of DVT seen on physical exam; No cords or calf tenderness ; No significant calf/ankle edema. Intake & Output 10/25/19 10/26/19 10/27/19 23:59 23:59 23:59 Intake Total 2000 530 Output Total 225 200 Balance 1775 330 Intake: IV 1700 SALINE LOCK 1000 IVPB 100 Oral 200 530 Output: Urine 200 200 Dorsey 100 200 Estimated Blood Loss 25 Other: Voiding Method Indwelling Catheter Indwelling Catheter # Unmeasured Voids Void 1 Bowel Movement No Weight 127 lb Height 5 ft 5 in Body Mass Index (BMI) 21.1 Weight Measurement Method Est/Stated by Patient Active Medications Generic Name Dose Route Start Last Admin Trade Name Freq PRN Reason Stop Dose Admin Atorvastatin Calcium 10 mg 10/26/19 22:00 10/26/19 22:06 Lipitor - PO 10 mg HS SHEELA Administration Carbidopa/Levodopa 1 each 10/26/19 14:00 10/27/19 13:23 Sinemet 25/250 - PO 1 each QID SHEELA Administration Docusate Sodium 100 mg 10/26/19 17:15 Colace - PO Q12H PRN CONSTIPATION Enoxaparin Sodium 40 mg 10/27/19 10:00 10/27/19 09:28 Lovenox - SQ 40 mg DAILY [facility] Administration Lactated Ringer's 1,000 mls @ 75 mls/hr 10/26/19 17:15 10/26/19 18:00 Lactated Ringers Solution IV 0 mls ASDIR SHEELA Administration Cefazolin Sodium/Dextrose 2 gm in 50 mls @ 200 mls/hr 10/27/19 10:00 09:28 Ancef 2 Gm Premixed Ivpb - IVPB 10/27/19 18:14 200 mls/hr Q8H-IV SHEELA Administration Non-Formulary Medication 100 mg 10/27/19 10:00 Safinamide Mesylate [Xadago] PO DAILY [facility] Ondansetron HCl 4 mg 10/26/19 17:11 Zofran Injection IVPUSH Q6H PRN NAUSEA AND/OR VOMITING Oxycodone HCl 5 mg 10/26/19 17:15 10/27/19 13:23 Roxicodone - PO 5 mg Q3H PRN Administration PAIN LEVEL 1-5 Oxycodone HCl 10 mg 10/26/19 17:15 Roxicodone - PO Q3H PRN PAIN LEVEL 6-10 Ropinirole HCl 0.5 mg 10/26/19 22:00 10/27/19 13:24 Requip - PO 0.5 mg QID SHEELA Administration Vital Signs (last) Temp Pulse Resp BP Pulse Ox 97.9 F 81 16 101/48 L 90 L 10/27/19 14:00 10/27/19 14:00 10/27/19 14:00 10/27/19 14:00 10/27/19 14:00 Laboratory (coagulation) PT with INR 11.6 SEC (10.2-13.0) 10/26/19 11:50 Laboratory 10/27/19 07:10 10/27/19 07:10 Intake & Output 10/25/19 10/26/19 10/27/19 23:59 23:59 23:59 Intake Total 2000 530 Output Total 225 200 Balance 1775 330 Intake: IV 1700 SALINE LOCK 1000 IVPB 100 Oral 200 530 Output: Urine 200 200 Dorsey 100 200 Estimated Blood Loss 25 Other: Voiding Method Indwelling Catheter Indwelling Catheter # Unmeasured Voids Void 1 Bowel Movement No Weight 127 lb Height 5 ft 5 in Body Mass Index (BMI) 21.1 Weight Measurement Method Est/Stated by Patient Active Medications Generic Name Dose Route Start Last Admin Trade Name Freq PRN Reason Stop Dose Admin Atorvastatin Calcium 10 mg 10/26/19 22:00 10/26/19 22:06 Lipitor - PO 10 mg HS SHEELA Administration Carbidopa/Levodopa 1 each 10/26/19 14:00 10/27/19 13:23 Sinemet 25/250 - PO 1 each QID SHEELA Administration Docusate Sodium 100 mg 10/26/19 17:15 Colace - PO Q12H PRN CONSTIPATION Enoxaparin Sodium 40 mg 10/27/19 10:00 10/27/19 09:28 Lovenox - SQ 40 mg DAILY [facility] Administration Lactated Ringer's 1,000 mls @ 75 mls/hr 10/26/19 17:15 10/26/19 18:00 Lactated Ringers Solution IV 0 mls ASDIR SHEELA Administration Cefazolin Sodium/Dextrose 2 gm in 50 mls @ 200 mls/hr 10/27/19 10:00 09:28 Ancef 2 Gm Premixed Ivpb - IVPB 10/27/19 18:14 200 mls/hr Q8H-IV SHEELA Administration Non-Formulary Medication 100 mg 10/27/19 10:00 Safinamide Mesylate [Xadago] PO DAILY [facility] Ondansetron HCl 4 mg 10/26/19 17:11 Zofran Injection IVPUSH Q6H PRN NAUSEA AND/OR VOMITING Oxycodone HCl 5 mg 10/26/19 17:15 10/27/19 13:23 Roxicodone - PO 5 mg Q3H PRN Administration PAIN LEVEL 1-5 Oxycodone HCl 10 mg 10/26/19 17:15 Roxicodone - PO Q3H PRN PAIN LEVEL 6-10 Ropinirole HCl 0.5 mg 10/26/19 22:00 10/27/19 13:24 Requip - PO 0.5 mg QID SHEELA Administration Vital Signs (last) Temp Pulse Resp BP Pulse Ox 97.9 F 81 16 101/48 L 90 L 10/27/19 14:00 10/27/19 14:00 10/27/19 14:00 10/27/19 14:00 10/27/19 14:00 Laboratory (coagulation) PT with INR 11.6 SEC (10.2-13.0) 10/26/19 11:50 IMAGING Radiographs of the right hip show intact hardware with no change in position. ASSESSMENT AND PLAN Sera Sevilla is an 79 year old female status post right hip intramedullary nail, POD#1. She is doing well. Hemodynamically stable. - DC Dorsey - FU AM labs - Weightbearing as tolerated - DVT prophylaxis: SCDs, early postoperative mobilization and lovenox 40 mg daily for chemoprophylaxis (continue for 35 days postoperatively). - Pain control: Transition to oral pain medications, minimize narcotic use - Ice/Elevation - Elevate HOB, encourage oral intake - Appreciate medical management (Nutrition optimization, decubitus precautions heel/sacrum) - PT/OT; - Follow-up as an outpatient in 2 weeks for wound check, removal of darrell (POD #14), and new x-rays.
[2019-10-27] MEDS: ATORVASTATIN CA 10 MG TABLET (FP) PO SCH (21:29)
[2019-10-27] MEDS: DOCUSATE SODIUM 100 MG CAPSULE (FP) PO SCH (22:30)
[2019-10-28 07:42] LABS: HEMATOCRIT 30.9 % (32.4-45.2); HEMOGLOBIN 10.5 GM/dl (10.7-15.3); MCH 34.4 pg (25.7-33.7); MEAN CELL VOLUME 101.2 fl (80-96); MEAN PLT VOLUME 8.1 fl (7.5-11.1); PLATELET COUNT 168 K/MM3 (134-434); RBC 3.05 M/mm3 (3.60-5.2); RDW 12.3 % (11.6-15.6); WHITE BLOOD COUNT 6.8 K/mm3 (4.0-10.8)
[2019-10-28 07:43] LABS: CALCIUM 8.3 mg/dl (8.5-10); CREATININE 0.7 mg/dl (0.55-1.3); POTASSIUM 3.9 mmol/L (3.5-5.1)
[2019-10-28] MEDS: rOPINIRole HCL 1 MG TABLET (FP) PO SCH ×2 (09:58→13:46)
[2019-10-28] MEDS: ENOXAPARIN NA (PORCINE) 40 MG/0.4 ML DISP.SYRIN SQ SCH (09:58)
[2019-10-28] MEDS: DOCUSATE SODIUM 100 MG CAPSULE (FP) PO SCH ×2 (09:58→22:00)
[2019-10-28] MEDS: CARBIDOPA/LEVODOPA 25/250 TABLET (FP) PO SCH ×4 (09:59→21:59)
[2019-10-28] MEDS: oxyCODONE HCL 5 MG TABLET PO PRN ×2 (11:02→13:45)
[2019-10-28] MEDS ORDERED: SODIUM CHLORIDE 250 ML IV STA (14:26)
--- NOTE | 2019-10-28 14:56 | PN ---
Physical Exam: SUBJECTIVE: Patient seen and examined oob to chair. Son and friend present. Has been coughing today. Earlier today was observed holding food in her mouth, coughing with swallowing. OBJECTIVE: Vital Signs Period Temp Pulse Resp BP Sys/Harrison Pulse Ox Last 24 Hr 98.0 F-98.9 F 80-83 16-20 97-132/43-54 95-99 GENERAL: The patient is awake, alert, and oriented. Appears fatigued. Coughing. LUNGS: Diffuse rhonchi. HEART: Regular rate and rhythm, S1, S2 ABDOMEN: Soft, nontender, nondistended RLE: Surgical dressing c/d/i NEUROLOGICAL: Cranial nerves II through XII grossly intact. Laboratory Results - last 24 hr 10/28/19 10/28/19 07:08 07:08 WBC 6.8 RBC 3.05 L Hgb 10.5 L Hct 30.9 L MCV 101.2 H MCH 34.4 H MCHC 34.0 RDW 12.3 Plt Count 168 MPV 8.1 Sodium 137 Potassium 3.9 Chloride 109 H Carbon Dioxide 27 Anion Gap 1 L BUN 20.0 H Creatinine 0.7 Est GFR (CKD-EPI)AfAm 94.84 Est GFR (CKD-EPI)NonAf 81.83 Random Glucose 96 Calcium 8.3 L Active Medications Generic Name Dose Route Start Last Admin Trade Name Freq PRN Reason Stop Dose Admin Acetaminophen 650 mg 10/27/19 22:31 Tylenol - PO Q6H PRN PAIN LEVEL 1-5 Atorvastatin Calcium 10 mg 10/26/19 22:00 10/27/19 21:29 Lipitor - PO 10 mg HS SHEELA Administration Carbidopa/Levodopa 1 each 10/26/19 14:00 10/28/19 13:45 Sinemet 25/250 - PO 1 each QID SHEELA Administration Docusate Sodium 100 mg 10/27/19 22:30 10/28/19 09:58 Colace - PO 100 mg BID SHEELA Administration Enoxaparin Sodium 40 mg 10/27/19 10:00 10/28/19 09:58 Lovenox - SQ 40 mg DAILY SHEELA Administration Sodium Chloride 250 mls @ 250 mls/hr 10/28/19 14:26 Normal Saline - IV 10/28/19 15:25 ASDIR STA Non-Formulary Medication 100 mg 10/27/19 10:00 Safinamide Mesylate [Xadago] PO DAILY [facility] Ondansetron HCl 4 mg 10/26/19 17:11 Zofran Injection IVPUSH Q6H PRN NAUSEA AND/OR VOMITING Oxycodone HCl 5 mg 10/26/19 17:15 10/28/19 13:45 Roxicodone - PO 5 mg Q3H PRN Administration PAIN LEVEL 1-5 Ropinirole HCl 0.5 mg 10/28/19 18:00 Requip - PO QID [facility] ASSESSMENT/PLAN 79 year-old female with a PMH significant for HLD and Parkinson's disease, admitted for acute right femoral intertrochanteric fracture. Acute right femoral intertrochanteric fracture --POD#2 --perioperative antibiotics complete --pain well-managed with PO meds --bowel regimen Parkinson's disease --continue carbidopa/levodopa, safinamide, and ropinirole Cough Possible aspiration --CXR now --discuss with Dr. Aguirre whether patient can tolerate esophagram Hyperlipidemia --continue simvastatin FEN Fluids: PO intake adequate Electrolytes: replete as indicated Nutrition: NPO pending CXR Physical therapy DVT prophylaxis: subq lovenox Dispo: continues to require inpatient care. Full code. Visit type - Emergency Visit Emergency Visit: Yes ED Registration Date: 10/26/19 Care time: The patient presented to the Emergency Department on the above date and was hospitalized for further evaluation of their emergent condition. - New Patient This patient is new to me today: No - Critical Care Critical Care patient: No
[2019-10-28] MEDS: rOPINIRole HCL 0.5 MG TABLET PO SCH ×2 (18:22→21:59)
--- NOTE | 2019-10-28 19:52 | PN ---
Progress Note (short form) - Note Progress Note: ORTHOPEDIC SURGERY PROGRESS NOTE Department of Orthopedic Surgery SUBJECTIVE No acute events overnight. No complaints currently. Denies chest pain, shortness of breath, or calf pain. No nausea or vomiting. Pain control improving. PHYSICAL EXAMINATION General: Alert, oriented, cooperative and no distress. Lower Extremity: Dressing intact; Incision clean and dry. Stapes intact. No drainage. Compartments soft. Muscle mass equal and symmetric to contralateral side. No atrophy noted. No masses or effusions noted. No tenderness to palpation. Gentle passive and active ROM, free from pain. EHL/TA/GS motor intact ; SILT distally; 2+ DP pulses; Cap refill brisk. DVT Exam: No evidence of DVT seen on physical exam; No cords or calf tenderness ; No significant calf/ankle edema. Intake & Output 10/26/19 10/27/19 10/28/19 23:59 23:59 23:59 Intake Total 1999 980 870 Output Total 225 200 Balance 1775 780 870 Intake: IV 1700 250 Normal Saline - 250 ml @ 250 250 mls/hr IV ASDIR STA Rx#:[id number] SALINE LOCK 1000 IVPB 100 100 Oral 200 880 620 Output: Urine 200 200 Dorsey 100 200 Estimated Blood Loss 25 Other: Voiding Method Indwelling Catheter Incontinent Incontinent # Unmeasured Voids Void 1 1 1 Bowel Movement No No No Weight 127 lb Height 5 ft 5 in Body Mass Index (BMI) 21.1 Weight Measurement Method Est/Stated by Patient Active Medications Generic Name Dose Route Start Last Admin Trade Name Freq PRN Reason Stop Dose Admin Acetaminophen 650 mg 10/27/19 22:31 Tylenol - PO Q6H PRN PAIN LEVEL 1-5 Atorvastatin Calcium 10 mg 10/26/19 22:00 10/27/19 21:29 Lipitor - PO 10 mg HS SHEELA Administration Carbidopa/Levodopa 1 each 10/26/19 14:00 10/28/19 18:22 Sinemet 25/250 - PO 1 each QID SHEELA Administration Docusate Sodium 100 mg 10/27/19 22:30 10/28/19 09:58 Colace - PO 100 mg BID SHEELA Administration Enoxaparin Sodium 40 mg 10/27/19 10:00 10/28/19 09:58 Lovenox - SQ 40 mg DAILY SHEELA Administration Non-Formulary Medication 100 mg 10/27/19 10:00 Safinamide Mesylate [Xadago] PO DAILY [facility] Ondansetron HCl 4 mg 10/26/19 17:11 Zofran Injection IVPUSH Q6H PRN NAUSEA AND/OR VOMITING Oxycodone HCl 5 mg 10/26/19 17:15 10/28/19 13:45 Roxicodone - PO 5 mg Q3H PRN Administration PAIN LEVEL 1-5 Ropinirole HCl 0.5 mg 10/28/19 18:00 10/28/19 18:22 Requip - PO 0.5 mg QID SHEELA Administration Vital Signs (last) Temp Pulse Resp BP Pulse Ox 97.9 F 80 17 88/42 L 93 L 10/28/19 14:00 10/28/19 14:00 10/28/19 14:00 10/28/19 14:00 10/28/19 14:00 Laboratory (coagulation) PT with INR 11.6 SEC (10.2-13.0) 10/26/19 11:50 Laboratory 10/28/19 07:08 10/28/19 07:08 ASSESSMENT AND PLAN Sera Sevilla is an 79 year old female status post right hip intramedullary nail, POD#2. She is doing well. Hemodynamically stable. - Medicine note appreciated; continue with medical management - Dressing changed; Will need daily dressing changes. - Weight-bearing as tolerated - DVT prophylaxis: SCDs, early postoperative mobilization and lovenox 40 mg daily for chemoprophylaxis (continue for 35 days postoperatively). - Pain control: Transition to oral pain medications, minimize narcotic use - Ice/Elevation - Elevate HOB - Nutrition optimization, decubitus precautions heel/sacrum - PT/OT; - Follow-up as an outpatient in 2 weeks for wound check, removal of darrell (POD #14), and new x-rays. - Dispo planning: discharge to [facility] when medically stable.
[2019-10-28] MEDS: ATORVASTATIN CA 10 MG TABLET (FP) PO SCH (21:59)
[2019-10-28] MEDS ORDERED: DEXTROSE 5%-0.45% SALINE 1,000 ML IV SCH (23:45)
[2019-10-29] MEDS: ACETAMINOPHEN 325 MG TABLET (FP) PO PRN (00:30)
[2019-10-29] MEDS: CARBIDOPA/LEVODOPA 25/250 TABLET (FP) PO SCH ×4 (10:00→22:18)
[2019-10-29] MEDS: ENOXAPARIN NA (PORCINE) 40 MG/0.4 ML DISP.SYRIN SQ SCH (10:00)
[2019-10-29] MEDS: rOPINIRole HCL 0.5 MG TABLET PO SCH ×4 (10:00→22:17)
[2019-10-29] MEDS: DOCUSATE SODIUM 100 MG CAPSULE (FP) PO SCH ×2 (10:00→22:18)
[2019-10-29 10:17] LABS: ALBUMIN 2.9 g/dl (3.4-5.0); BILIRUBIN,TOTAL 0.8 mg/dl (0.2-1); CALCIUM 8.4 mg/dl (8.5-10); CREATININE 0.5 mg/dl (0.55-1.3); MAGNESIUM 1.9 mg/dL (1.8-2.4); POTASSIUM 3.9 mmol/L (3.5-5.1); TOT PROT 5.6 g/dl (6.4-8.2)
--- NOTE | 2019-10-29 10:33 | PN ---
Physical Exam: SUBJECTIVE: Patient seen and examined at bedside. Has not been coughing today but sometimes feels short of breath. OBJECTIVE: Vital Signs Period Temp Pulse Resp BP Sys/Harrison Pulse Ox Last 24 Hr 97.9 F-98.5 F 72-84 17-20 88-129/41-47 93-100 GENERAL: The patient is awake, alert, and oriented. LUNGS: CTA, improved HEART: Regular rate and rhythm, S1, S2 ABDOMEN: Soft, nontender, nondistended RLE: Surgical dressing c/d/i NEUROLOGICAL: Cranial nerves II through XII grossly intact. Laboratory Results - last 24 hr 10/29/19 06:00 Sodium 138 Potassium 3.9 Chloride 106 Carbon Dioxide 27 Anion Gap 5 L BUN 19.0 H Creatinine 0.5 L Est GFR (CKD-EPI)AfAm 105.94 Est GFR (CKD-EPI)NonAf 91.41 Random Glucose 90 Calcium 8.4 L Magnesium 1.9 Total Bilirubin 0.8 AST 15 ALT 5 L Alkaline Phosphatase 50 Total Protein 5.6 L Albumin 2.9 L Active Medications Generic Name Dose Route Start Last Admin Trade Name Freq PRN Reason Stop Dose Admin Acetaminophen 650 mg 10/27/19 22:31 10/29/19 00:30 Tylenol - PO 650 mg Q6H PRN Administration PAIN LEVEL 1-5 Amoxicillin/Clavulanate Potassium 1 tab 10/29/19 10:15 Augmentin - 875mg Tablet PO BID SHEELA Atorvastatin Calcium 10 mg 10/26/19 22:00 10/28/19 21:59 Lipitor - PO 10 mg HS SHEELA Administration Carbidopa/Levodopa 1 each 10/26/19 14:00 10/29/19 10:00 Sinemet 25/250 - PO 1 each QID SHEELA Administration Docusate Sodium 100 mg 10/27/19 22:30 10/29/19 10:00 Colace - PO 100 mg BID SHEELA Administration Enoxaparin Sodium 40 mg 10/27/19 10:00 10/29/19 10:00 Lovenox - SQ 40 mg DAILY [facility] Administration Dextrose/Sodium Chloride 1,000 mls @ 30 mls/hr 10/28/19 23:45 10/29/19 00:21 D5-1/2ns - IV 30 mls/hr ASDIR SHEELA Administration Non-Formulary Medication 100 mg 10/27/19 10:00 Safinamide Mesylate [Xadago] PO DAILY [facility] Ondansetron HCl 4 mg 10/26/19 17:11 Zofran Injection IVPUSH Q6H PRN NAUSEA AND/OR VOMITING Oxycodone HCl 5 mg 10/26/19 17:15 10/28/19 13:45 Roxicodone - PO 5 mg Q3H PRN Administration PAIN LEVEL 1-5 Ropinirole HCl 0.5 mg 10/28/19 18:00 10/29/19 10:00 Requip - PO 0.5 mg QID SHEELA Administration ASSESSMENT/PLAN: 79 year-old female with a PMH significant for HLD and Parkinson's disease, admitted for acute right femoral intertrochanteric fracture. Acute right femoral intertrochanteric fracture --POD#3 --perioperative antibiotics complete --pain well-managed with PO meds --bowel regimen Parkinson's disease --diagnosed 6 years ago and with signs of advanced disease: dysarthric, difficulty swallowing, frequent falls, now ambulating only a few feet --continue carbidopa/levodopa, and ropinirole; family has been asked to bring in safinamide/Xadago which is nonformulary --ordered esophagram on Thursday but room was down Cough Possible aspiration --serial CXRs unremarkable --discuss with Dr. Aguirre whether patient can tolerate esophagram Hyperlipidemia --continue simvastatin Klebsiella UTI --start augmentin FEN Fluids: PO intake adequate Electrolytes: replete as indicated Nutrition: dysphagia puree with honey-thick liquids Physical therapy DVT prophylaxis: subq lovenox x 35 days post op Dispo: continues to require inpatient care. Full code. Visit type - Emergency Visit Emergency Visit: Yes ED Registration Date: 10/26/19 Care time: The patient presented to the Emergency Department on the above date and was hospitalized for further evaluation of their emergent condition. - New Patient This patient is new to me today: No - Critical Care Critical Care patient: No
[2019-10-29 10:54] LABS: BASO % 0.3 % (0-2.0); EOS % 2.8 % (0-4.5); HEMATOCRIT 29.7 % (32.4-45.2); LYMPH % 13.1 % (8-40); MCH 34.1 pg (25.7-33.7); MCHC 33.9 g/dl (32.0-36.0); MEAN CELL VOLUME 100.8 fl (80-96); MEAN PLT VOLUME 8.6 fl (7.5-11.1); MONO % 7.7 % (3.8-10.2); NEUT % 76.1 % (42.8-82.8); PLATELET COUNT 179 K/MM3 (134-434); RBC 2.94 M/mm3 (3.60-5.2); RDW 12.9 % (11.6-15.6); WHITE BLOOD COUNT 5.8 K/mm3 (4.0-10.0)
[2019-10-29] MEDS: AMOX TR/POT CLAV 875MG/125MG TABLETS (FP) PO SCH ×2 (12:07→22:18)
[2019-10-29] MEDS: oxyCODONE HCL 5 MG TABLET PO PRN (22:19)
[2019-10-29] MEDS: ATORVASTATIN CA 10 MG TABLET (FP) PO SCH (22:19)
[2019-10-30] MEDS: ACETAMINOPHEN 325 MG TABLET (FP) PO PRN ×2 (08:47→21:10)
[2019-10-30 08:59] LABS: BASO % 0.9 % (0-2.0); EOS % 1.6 % (0-4.5); HEMATOCRIT 32.3 % (32.4-45.2); HEMOGLOBIN 10.9 GM/dl (10.7-15.3); LYMPH % 10.4 % (8-40); MCH 34.6 pg (25.7-33.7); MCHC 33.9 g/dl (32.0-36.0); MEAN CELL VOLUME 102.1 fl (80-96); MEAN PLT VOLUME 7.9 fl (7.5-11.1); MONO % 6.6 % (3.8-10.2); NEUT % 80.5 % (42.8-82.8); PLATELET COUNT 219 K/MM3 (134-434); RBC 3.16 M/mm3 (3.60-5.2); RDW 12.6 % (11.6-15.6); WHITE BLOOD COUNT 6.8 K/mm3 (4.0-10.8)
[2019-10-30 09:29] LABS: ALBUMIN 2.9 g/dl (3.4-5.0); BILIRUBIN,TOTAL 0.8 mg/dl (0.2-1); CALCIUM 8.6 mg/dl (8.5-10); CREATININE 0.6 mg/dl (0.55-1.3); MAGNESIUM 1.9 mg/dL (1.8-2.4); POTASSIUM 4.2 mmol/L (3.5-5.1); TOT PROT 5.9 g/dl (6.4-8.2)
[2019-10-30] MEDS: DOCUSATE SODIUM 100 MG CAPSULE (FP) PO SCH ×2 (10:14→21:11)
[2019-10-30] MEDS: rOPINIRole HCL 0.5 MG TABLET PO SCH ×4 (10:14→21:11)
[2019-10-30] MEDS: AMOX TR/POT CLAV 875MG/125MG TABLETS (FP) PO SCH ×2 (10:14→21:11)
[2019-10-30] MEDS: ENOXAPARIN NA (PORCINE) 40 MG/0.4 ML DISP.SYRIN SQ SCH (10:14)
[2019-10-30] MEDS: CARBIDOPA/LEVODOPA 25/250 TABLET (FP) PO SCH ×4 (10:15→21:11)
--- NOTE | 2019-10-30 11:39 | PN ---
Physical Exam: SUBJECTIVE: Patient seen and examined oob to chair. Worked with PT today. OBJECTIVE: Vital Signs Period Temp Pulse Resp BP Sys/Harrison Pulse Ox Last 24 Hr 98.1 F-98.4 F 76-85 16-20 104-136/37-68 96-99 GENERAL: The patient is awake, alert, and oriented. LUNGS: CTA, improved; no coughing observed HEART: Regular rate and rhythm, S1, S2 ABDOMEN: Soft, nontender, nondistended RLE: Surgical dressing c/d/i NEUROLOGICAL: Cranial nerves II through XII grossly intact. Laboratory Results - last 24 hr 10/30/19 10/30/19 08:01 08:54 WBC 6.8 RBC 3.16 L Hgb 10.9 Hct 32.3 L MCV 102.1 H MCH 34.6 H MCHC 33.9 RDW 12.6 Plt Count 219 MPV 7.9 Absolute Neuts (auto) 5.4 Neutrophils % 80.5 Lymphocytes % 10.4 Monocytes % 6.6 Eosinophils % 1.6 Basophils % 0.9 Sodium 136 Potassium 4.2 Chloride 104 Carbon Dioxide 24 Anion Gap 8 BUN 13.0 Creatinine 0.6 Est GFR (CKD-EPI)AfAm 99.77 Est GFR (CKD-EPI)NonAf 86.09 Random Glucose 140 H Calcium 8.6 Magnesium 1.9 Total Bilirubin 0.8 AST 17 ALT 9 L Alkaline Phosphatase 50 Total Protein 5.9 L Albumin 2.9 L Active Medications Generic Name Dose Route Start Last Admin Trade Name Freq PRN Reason Stop Dose Admin Acetaminophen 650 mg 10/27/19 22:31 10/30/19 08:47 Tylenol - PO 650 mg Q6H PRN Administration PAIN LEVEL 1-5 Amoxicillin/Clavulanate Potassium 1 tab 10/29/19 10:15 10/30/19 10:14 Augmentin - 875mg Tablet PO 1 tab BID SHEELA Administration Atorvastatin Calcium 10 mg 10/29/19 22:00 10/29/19 22:19 Lipitor - PO 10 mg HS SHEELA Administration Carbidopa/Levodopa 1 each 10/29/19 22:00 10/30/19 10:15 Sinemet 25/250 - PO 1 each QID SHEELA Administration Docusate Sodium 100 mg 10/27/19 22:30 10/30/19 10:14 Colace - PO 100 mg BID SHEELA Administration Enoxaparin Sodium 40 mg 10/27/19 10:00 10/30/19 10:14 Lovenox - SQ 40 mg DAILY [facility] Administration Non-Formulary Medication 100 mg 10/30/19 10:00 Safinamide Mesylate [Xadago] PO DAILY [facility] Ondansetron HCl 4 mg 10/26/19 17:11 Zofran Injection IVPUSH Q6H PRN NAUSEA AND/OR VOMITING Ropinirole HCl 0.5 mg 10/28/19 18:00 10/30/19 10:14 Requip - PO 0.5 mg QID [facility] Administration ASSESSMENT/PLAN: 79 year-old female with a PMH significant for HLD and Parkinson's disease, admitted for acute right femoral intertrochanteric fracture. Acute right femoral intertrochanteric fracture --POD#4 --perioperative antibiotics complete --pain well-managed with PO meds --bowel regimen Parkinson's disease --diagnosed 6 years ago and with signs of advanced disease: dysarthric, difficulty swallowing, frequent falls --continue carbidopa/levodopa, and ropinirole; family has been asked to bring in safinamide/Xadago which is nonformulary --ordered esophagram on Thursday but room was down Cough Possible aspiration --serial CXRs unremarkable, afebrile, no leukocytosis; continue to observe off antibiotics --discuss with Dr. Aguirre whether patient can tolerate esophagram Hyperlipidemia --continue simvastatin Klebsiella UTI --continue augmentin (day #2) FEN Fluids: PO intake adequate Electrolytes: replete as indicated Nutrition: dysphagia puree with honey-thick liquids Physical therapy DVT prophylaxis: subq lovenox x 35 days post op Dispo: continues to require inpatient care. Full code. Visit type - Emergency Visit Emergency Visit: Yes ED Registration Date: 10/26/19 Care time: The patient presented to the Emergency Department on the above date and was hospitalized for further evaluation of their emergent condition. - New Patient This patient is new to me today: No - Critical Care Critical Care patient: No
[2019-10-30] MEDS: ATORVASTATIN CA 10 MG TABLET (FP) PO SCH (21:11)
[2019-10-31 06:16] VITALS: BP 148/61; PULSE 86; TEMP 97.8
--- NOTE | 2019-10-31 08:23 | DS ---
Physical Exam: SUBJECTIVE: Patient seen and examined OBJECTIVE: Vital Signs Period Temp Pulse Resp BP Sys/Harrison Pulse Ox Last 24 Hr 97.8 F-98.0 F 77-90 16-18 105-148/42-61 91-97 PHYSICAL EXAM GENERAL: The patient is awake, alert, and oriented. LUNGS: CTA, improved; no coughing observed HEART: Regular rate and rhythm, S1, S2 ABDOMEN: Soft, nontender, nondistended RLE: Surgical dressing c/d/i NEUROLOGICAL: Cranial nerves II through XII grossly intact. LABS Laboratory Results - last 24 hr 10/30/19 10/30/19 08:01 08:54 WBC 6.8 RBC 3.16 L Hgb 10.9 Hct 32.3 L MCV 102.1 H MCH 34.6 H MCHC 33.9 RDW 12.6 Plt Count 219 MPV 7.9 Absolute Neuts (auto) 5.4 Neutrophils % 80.5 Lymphocytes % 10.4 Monocytes % 6.6 Eosinophils % 1.6 Basophils % 0.9 Sodium 136 Potassium 4.2 Chloride 104 Carbon Dioxide 24 Anion Gap 8 BUN 13.0 Creatinine 0.6 Est GFR (CKD-EPI)AfAm 99.77 Est GFR (CKD-EPI)NonAf 86.09 Random Glucose 140 H Calcium 8.6 Magnesium 1.9 Total Bilirubin 0.8 AST 17 ALT 9 L Alkaline Phosphatase 50 Total Protein 5.9 L Albumin 2.9 L HOSPITAL COURSE: Date of Admission:10/26/19 Date of Discharge: 10/31/19 Pre hospital course 79 year-old female with a PMH significant for HLD and Parkinson's disease, was BIBA from home following a mechanical fall at home. Patient left her walker outside her bathroom. As she got up from the toilet and turned, she fell on her right side. She denies hitting her head, denies LOC, denies prodromal symptoms. Patient had a fall 2 days ago, witnessed by her home health aide. ER course (1) Xray right hip/pelvis: acute right femoral intertrochanteric fracture Subsequent hospital course 79 year-old female with a PMH significant for HLD and Parkinson's disease, admitted for acute right femoral intertrochanteric fracture. Acute right femoral intertrochanteric fracture --uncomplicated post-op course --perioperative antibiotics complete --pain well-managed with PO meds Parkinson's disease --diagnosed 6 years ago and with signs of advanced disease: dysarthric, difficulty swallowing, frequent falls --continued carbidopa/levodopa, and ropinirole Hyperlipidemia --continued simvastatin Klebsiella UTI --continued augmentin Minutes to complete discharge: 35 Discharge Summary Problems reviewed: Yes Reason For Visit: FRACTURE OF HIP Current Active Problems Hip fracture (Acute) Condition: Improved - Instructions Diet, Activity, Other Instructions: Patient is being discharged to your facility on Augmentin 875mg BID for a Klebsiella UTI. She is to receive another 5 days of treatment. Patient needs to follow up with her surgeon, Dr. Arguello, on November 08 (post-op day #14) for wound check, removal of darrell, and new xrays. Referrals: Suhail Arguello DO [Staff Physician] - Disposition: [facility] FACILITY - Home Medications Comprehensive Discharge Medication List: Ambulatory Orders Safinamide Mesylate [Xadago] 100 mg PO DAILY 02/15/19 Carbidopa/Levodopa [Carbidopa-Levodopa 25-250 Tab] 1 each PO QID 03/27/19 Ropinirole HCl 0.5 mg PO QID 10/26/19 Simvastatin 20 mg PO DAILY 10/26/19 Amox-Tr/K Cl [Augmentin 875-125mg Tablet -] 1 tab PO BID #10 tablet 10/31/19 This patient is new to me today: No Emergency Visit: Yes ED Registration Date: 10/26/19 Care time: The patient presented to the Emergency Department on the above date and was hospitalized for further evaluation of their emergent condition. Critical Care patient: No - Discharge Referral Referred to [facility] No
[2019-10-31] MEDS ORDERED: PT OWN MED DRAWER 7, Y5N ONE (09:51)
[2019-10-31] MEDS ORDERED: SAFINAMIDE MESYLATE 100 MG PO SCH (10:00)
[2019-10-31] MEDS: ENOXAPARIN NA (PORCINE) 40 MG/0.4 ML DISP.SYRIN SQ SCH (10:04)
[2019-10-31] MEDS: CARBIDOPA/LEVODOPA 25/250 TABLET (FP) PO SCH (10:05)
[2019-10-31] MEDS: DOCUSATE SODIUM 100 MG CAPSULE (FP) PO SCH (10:05)
[2019-10-31] MEDS: AMOX TR/POT CLAV 875MG/125MG TABLETS (FP) PO SCH (10:05)
[2019-10-31] MEDS: rOPINIRole HCL 0.5 MG TABLET PO SCH (10:05)
== END 2019-10-31 11:08 | DRG 481 ==
LOC: FER 10:57 → FM/S 13:43
PROVIDERS: ADMIT Internal Medicine; ATTEND Nurse Practitioner Acute Care
PROC: 0QS606Z Reposition Right Upper Femur with Intramedullary Internal Fixation Device, Open Approach (ICD-10-PCS; principal; 2019-10-26 16:21)
DX: S72.144A Nondisplaced intertrochanteric fracture of right femur, initial encounter for closed fracture (principal); N39.0 Urinary tract infection, site not specified; W18.30XA Fall on same level, unspecified, initial encounter; Y92.091 Bathroom in other non-institutional residence as the place of occurrence of the external cause; E78.5 Hyperlipidemia, unspecified; G20 Parkinson's disease; B96.1 Klebsiella pneumoniae [K. pneumoniae] as the cause of diseases classified elsewhere; T17.920A Food in respiratory tract, part unspecified causing asphyxiation, initial encounter
CPT/HCPCS: 36415; 70450-TC; 71045-TC-FY; 72125-TC; 73501-TC-RT-FY; 73502-TC-RT-FY; 73523-TC-FY; 73552-TC-RT-FY; 73560-TC-RT-FY; 80048; 80053; 81003; 81015; 82550; 82553; 83735; 84484; 85025; 85027; 85610; 85730; 86850; 86900; 86901; 87086; 87186; 93005; 94760; 97116-GP; 97163-GP; 99285-25; J0131; J7030

== ENCOUNTER 2020-07-23 08:12 | Day surgery (SDC) | payer OTHER, BC ==
[2020-07-20 15:44] VITALS: BMI 20.7
[2020-07-23 10:03] VITALS: TEMP 97.9
[2020-07-23 10:31] VITALS: BP 123/57; PULSE 94
== END 2020-07-23 11:15 | disposition home or self-care (01) ==
LOC: FASU-ENDO 08:12
PROVIDERS: ATTEND Internal Medicine Gastroenterology
PROC: 0DJD8ZZ Inspection of Lower Intestinal Tract, Via Natural or Artificial Opening Endoscopic (ICD-10-PCS; principal; 2020-07-23 09:10)
DX: K62.5 Hemorrhage of anus and rectum (principal); K57.30 Diverticulosis of large intestine without perforation or abscess without bleeding; R19.7 Diarrhea, unspecified

== ENCOUNTER 2022-01-21 15:10 | Inpatient (IN) | payer OTHER, BC ==
[2022-01-21] MEDS ORDERED: EPINEPHrine 1:10,000 (P-F SYR) 1 MG/10 ML DISP.SYRIN ONE (15:19)
[2022-01-21] MEDS ORDERED: SODIUM CHLORIDE 0.9% 500 ML INFUS.BAG IV ONE (15:19)
[2022-01-21] MEDS ORDERED: SODIUM BICARBONATE 8.4% - 50 ML ONE (15:20)
[2022-01-21 15:48] LABS: HEMATOCRIT 41.6 % (32.4-45.2); HEMOGLOBIN 12.9 GM/dL (10.7-15.3); MCH 34.4 pg (25.7-33.7); MCHC 31.1 g/dl (32.0-36.0); MEAN CELL VOLUME 110.6 fl (80-96); MEAN PLT VOLUME 7.7 fl (7.5-11.1); PLATELET COUNT 266 10^3/uL (134-434); RBC 3.76 M/mm3 (3.60-5.2); RDW 15.1 % (11.6-15.6); WHITE BLOOD COUNT 9.5 K/mm3 (4.0-10.0)
[2022-01-21 15:54] LABS: ACTIVATED PTT 30.2 SECONDS (25.2-36.5); INR 1.03 (0.83-1.09); PROTHROMBIN TIME (PATIENT) 11.8 SEC (9.7-13.0)
[2022-01-21 16:08] LABS: ALBUMIN 2.5 g/dl (3.4-5.0); CALCIUM 8.8 mg/dL (8.5-10.1)
[2022-01-21 16:09] LABS: BLOOD UREA NITROGEN 26.1 mg/dL (7-18)
[2022-01-21 16:12] LABS: CREATININE 1.2 mg/dL (0.55-1.3)
[2022-01-21 16:13] LABS: BILIRUBIN,TOTAL 0.4 mg/dL (0.2-1)
[2022-01-21 16:16] LABS: TOT PROT 5.9 g/dl (6.4-8.2)
[2022-01-21] MEDS ORDERED: LACTATED RINGERS SOLUTION 1000 ML INFUS.BAG IV ONE (16:16)
[2022-01-21 17:05] LABS: ANISOCYTOSIS 2+; MACROCYTOSIS 2+
[2022-01-21] MEDS: NOREPINEPHRINE D5W PREMIX 16,000 MCG/500 ML BAG IVPB SCH (17:15)
[2022-01-21] MEDS: FENTANYL NS IVPB 500 MCG/100 ML BAG IVPB SCH (19:30)
[2022-01-21] MEDS: MIDAZOLAM IN 0.9 % SOD.CHLORID 100 MG/100 ML PLAST..BAG IVPB SCH (19:30)
[2022-01-21 20:53] LABS: EPI CELLS 2 /uL (0-25.1); HYALINE CASTS 2 /uL (0-3.1); URINE APPEARANCE CLOUDY; URINE BACTERIA >9,000 /uL (0-1359); URINE BILIRUBIN NEGATIVE (NEGATIVE); URINE COLOR YELLOW; URINE GLUCOSE (UA) NEGATIVE (NEGATIVE); URINE KETONE NEGATIVE (NEGATIVE); URINE LEUK ESTERASE NEGATIVE (NEGATIVE); URINE NITRITE POSITIVE (NEGATIVE); URINE PROTEIN 1+ (NEGATIVE); URINE RBC 74 /uL (0-23.9); URINE UROBILINOGEN 0.2 mg/dL (0.2-1.0)
[2022-01-21 20:53] LABS: ARTERIAL BLD GAS O2 SATURATION 91.9 % (95-98); ARTERIAL BLOOD GAS BASE EXCESS 0 mmol/L (-2-2); ARTERIAL BLOOD GAS pH 7.335 (7.350-7.450)
[2022-01-21 20:54] LABS: METHADONE, UR NEGATIVE (NEGATIVE)
[2022-01-21 20:55] LABS: ALLENS TEST POSITIVE
[2022-01-21 20:56] LABS: VENT MODE A/C; VENT RATE 14
[2022-01-21 21:00] LABS: COCAINE, UR NEGATIVE (NEGATIVE); OPIATES, URI NEGATIVE (NEGATIVE); PHENCYCLIDINE,URINE NEGATIVE (NEGATIVE); URINE AMPHETAMINES NEGATIVE (NEGATIVE); URINE BARBITURATES NEGATIVE (NEGATIVE); URINE BENZODIAZEPINES NEGATIVE (NEGATIVE)
[2022-01-21 21:04] LABS: PLATELET ESTIMATE ADEQUATE
[2022-01-21] MEDS: MUPIROCIN 2% TOPICAL OINTMENT FOR DECOLONIZATION NS SCH (21:11)
[2022-01-21] MEDS: CHLORHEXIDINE GLUCONATE 4% CLEANSER FOR DECOLONIZATION TP SCH (21:13)
[2022-01-21 21:18] LABS: LACTIC ACID 2.3 mmol/L (0.4-2.0)
[2022-01-21] MEDS: LACTATED RINGERS SOLUTION 1,000 ML/1,000 ML INFUS.BAG IV SCH (21:45)
[2022-01-22 07:22] LABS: HEMATOCRIT 40.8 % (32.4-45.2); HEMOGLOBIN 13.5 GM/dL (10.7-15.3); MCH 33.6 pg (25.7-33.7); MEAN CELL VOLUME 101.7 fl (80-96); MEAN PLT VOLUME 7.4 fl (7.5-11.1); PLATELET COUNT 270 10^3/uL (134-434); RBC 4.01 M/mm3 (3.60-5.2); RDW 13.7 % (11.6-15.6); WHITE BLOOD COUNT 16.7 K/mm3 (4.0-10.0)
[2022-01-22 07:35] LABS: CALCIUM 7.6 mg/dL (8.5-10.1); MAGNESIUM 1.8 mg/dL (1.8-2.4)
[2022-01-22 07:36] LABS: BLOOD UREA NITROGEN 27.3 mg/dL (7-18)
[2022-01-22 07:38] LABS: PHOSPHOROUS 2.5 mg/dL (2.5-4.9)
[2022-01-22 07:39] LABS: CREATININE 0.5 mg/dL (0.55-1.3)
[2022-01-22] MEDS: MUPIROCIN 2% TOPICAL OINTMENT FOR DECOLONIZATION NS SCH ×2 (09:14→22:14)
[2022-01-22] MEDS ORDERED: CEFTRIAXONE 1 GM in DEXTROSE 5%-WATER - 50 ML IVPB SCH (10:30)
[2022-01-22] MEDS: ENOXAPARIN NA (PORCINE) 40 MG/0.4 ML DISP.SYRIN SQ SCH (11:08)
[2022-01-22] MEDS: D5-1/2NS+20 MEQ KCL - 20 MEQ/1,000 ML INFUS.BAG IV SCH (11:09)
[2022-01-22] MEDS ORDERED: DEXTROSE 5%-WATER - 50 ML IVPB ONE ×2 (11:10→20:01)
[2022-01-22] MEDS ORDERED: PIPERACILLIN/TAZOBACTAM 3.375 GM VIAL IVPB ONE ×2 (11:10→20:01)
[2022-01-22] MEDS: PIPERACILLIN/TAZOB 3.375 GM 3.375 GM in DEXTROSE 5%-WATER - 50 ML IVPB SCH ×2 (11:11→20:19)
[2022-01-22] MEDS: FENTANYL NS IVPB 500 MCG/100 ML BAG IVPB SCH (11:36)
[2022-01-22] MEDS ORDERED: PIPERACILLIN/TAZOB 3.375 GM 3.375 GM in DEXTROSE 5%-WATER - 50 ML IVPB SCH (18:00)
[2022-01-22] MEDS: NOREPINEPHRINE D5W PREMIX 16,000 MCG/500 ML BAG IVPB SCH (20:28)
[2022-01-22] MEDS: MIDAZOLAM IN 0.9 % SOD.CHLORID 100 MG/100 ML PLAST..BAG IVPB SCH (20:29)
[2022-01-22] MEDS: LACTATED RINGERS SOLUTION 1,000 ML/1,000 ML INFUS.BAG IV SCH (22:13)
[2022-01-22] MEDS: CHLORHEXIDINE GLUCONATE 4% CLEANSER FOR DECOLONIZATION TP SCH (22:14)
[2022-01-23] MEDS: D5-1/2NS+20 MEQ KCL - 20 MEQ/1,000 ML INFUS.BAG IV SCH ×2 (01:22→14:20)
[2022-01-23] MEDS ORDERED: PIPERACILLIN/TAZOBACTAM 3.375 GM VIAL IVPB ONE ×2 (01:24→01:25)
[2022-01-23] MEDS ORDERED: DEXTROSE 5%-WATER - 50 ML IVPB ONE ×2 (01:25→01:26)
[2022-01-23] MEDS: PIPERACILLIN/TAZOB 3.375 GM 3.375 GM in DEXTROSE 5%-WATER - 50 ML IVPB SCH (01:28)
[2022-01-23] MEDS: NOREPINEPHRINE D5W PREMIX 16,000 MCG/500 ML BAG IVPB SCH (02:05)
[2022-01-23] MEDS ORDERED: PIPERACILLIN/TAZOBACTAM 4.5 GM VIAL IVPB ONE ×3 (10:23→21:19)
[2022-01-23] MEDS: PIPERACILLIN/TAZOB 4.5 GM 4.5 GM in DEXTROSE 5%-WATER 100 ML IVPB SCH ×3 (10:24→21:39)
[2022-01-23] MEDS ORDERED: DEXTROSE 5%-WATER 100 ML IVPB ONE ×3 (10:24→21:19)
[2022-01-23] MEDS: ENOXAPARIN NA (PORCINE) 40 MG/0.4 ML DISP.SYRIN SQ SCH (10:25)
[2022-01-23] MEDS: MUPIROCIN 2% TOPICAL OINTMENT FOR DECOLONIZATION NS SCH ×2 (10:26→21:46)
[2022-01-23] MEDS: MIDAZOLAM IN 0.9 % SOD.CHLORID 100 MG/100 ML PLAST..BAG IVPB SCH (19:30)
[2022-01-23] MEDS: CHLORHEXIDINE GLUCONATE 4% CLEANSER FOR DECOLONIZATION TP SCH (21:47)
[2022-01-24] MEDS ORDERED: PIPERACILLIN/TAZOBACTAM 4.5 GM VIAL IVPB ONE (02:32)
[2022-01-24] MEDS ORDERED: DEXTROSE 5%-WATER 100 ML IVPB ONE (02:33)
[2022-01-24] MEDS: PIPERACILLIN/TAZOB 4.5 GM 4.5 GM in DEXTROSE 5%-WATER 100 ML IVPB SCH ×3 (03:00→17:38)
[2022-01-24] MEDS: D5-1/2NS+20 MEQ KCL - 20 MEQ/1,000 ML INFUS.BAG IV SCH ×2 (04:38→16:00)
[2022-01-24 07:13] LABS: HEMATOCRIT 36.4 % (32.4-45.2); HEMOGLOBIN 11.9 GM/dL (10.7-15.3); MCH 33.1 pg (25.7-33.7); MCHC 32.8 g/dl (32.0-36.0); MEAN PLT VOLUME 8.4 fl (7.5-11.1); PLATELET COUNT 220 10^3/uL (134-434); RDW 13.5 % (11.6-15.6); WHITE BLOOD COUNT 19.8 K/mm3 (4.0-10.0)
[2022-01-24 07:36] LABS: BLOOD UREA NITROGEN 26.8 mg/dL (7-18); CALCIUM 7.9 mg/dL (8.5-10.1); MAGNESIUM 1.8 mg/dL (1.8-2.4)
[2022-01-24 07:39] LABS: CREATININE 0.6 mg/dL (0.55-1.3)
[2022-01-24 07:40] LABS: PHOSPHOROUS 2.6 mg/dL (2.5-4.9)
[2022-01-24 07:41] LABS: BILIRUBIN,TOTAL 0.5 mg/dL (0.2-1)
[2022-01-24] MEDS: ENOXAPARIN NA (PORCINE) 40 MG/0.4 ML DISP.SYRIN SQ SCH (08:59)
[2022-01-24] MEDS: MUPIROCIN 2% TOPICAL OINTMENT FOR DECOLONIZATION NS SCH ×2 (09:00→22:00)
[2022-01-24] MEDS: PANTOPRAZOLE SODIUM 40 MG VIAL IVPUSH SCH (09:30)
[2022-01-24] MEDS: DEXMEDETOMIDINE IN 0.9 % NACL 400 MCG/100 ML VIAL IVPB SCH (12:52)
[2022-01-24] MEDS ORDERED: VANCOMYCIN/WATER FOR INJ (PEG) 1,000 MG/200 ML BAG IVPB ONE (13:30)
[2022-01-24 14:38] VITALS: BMI 21.2
[2022-01-24] MEDS: CHLORHEXIDINE GLUCONATE 4% CLEANSER FOR DECOLONIZATION TP SCH (22:00)
[2022-01-25] MEDS: PIPERACILLIN/TAZOB 4.5 GM 4.5 GM in DEXTROSE 5%-WATER 100 ML IVPB SCH ×3 (03:00→17:14)
[2022-01-25] MEDS ORDERED: PIPERACILLIN/TAZOBACTAM 4.5 GM VIAL IVPB ONE ×3 (04:42→17:12)
[2022-01-25] MEDS ORDERED: DEXTROSE 5%-WATER 100 ML IVPB ONE ×3 (04:42→17:12)
[2022-01-25] MEDS: DEXMEDETOMIDINE IN 0.9 % NACL 400 MCG/100 ML VIAL IVPB SCH (09:17)
[2022-01-25 09:26] LABS: HEMATOCRIT 31.1 % (32.4-45.2); HEMOGLOBIN 10.7 GM/dL (10.7-15.3); MCH 34.4 pg (25.7-33.7); MCHC 34.5 g/dl (32.0-36.0); MEAN CELL VOLUME 99.6 fl (80-96); MEAN PLT VOLUME 8.4 fl (7.5-11.1); PLATELET COUNT 158 10^3/uL (134-434); RBC 3.12 M/mm3 (3.60-5.2); RDW 13.4 % (11.6-15.6)
[2022-01-25] MEDS: MUPIROCIN 2% TOPICAL OINTMENT FOR DECOLONIZATION NS SCH ×2 (09:28→22:00)
[2022-01-25] MEDS: ENOXAPARIN NA (PORCINE) 40 MG/0.4 ML DISP.SYRIN SQ SCH (09:28)
[2022-01-25] MEDS: PANTOPRAZOLE SODIUM 40 MG VIAL IVPUSH SCH (09:28)
[2022-01-25] MEDS: D5-1/2NS+20 MEQ KCL - 20 MEQ/1,000 ML INFUS.BAG IV SCH (09:33)
[2022-01-25 09:40] LABS: BLOOD UREA NITROGEN 18.1 mg/dL (7-18); CALCIUM 7.6 mg/dL (8.5-10.1)
[2022-01-25 09:43] LABS: PHOSPHOROUS 2.6 mg/dL (2.5-4.9)
[2022-01-25 09:44] LABS: CREATININE 0.4 mg/dL (0.55-1.3)
[2022-01-25] MEDS: POTASSIUM CHLORIDE 20 MEQ PREMIX IVPB 100 ML IVPB SCH ×2 (10:21→11:23)
[2022-01-25] MEDS: CHLORHEXIDINE GLUCONATE 4% CLEANSER FOR DECOLONIZATION TP SCH (22:00)
[2022-01-26] MEDS: PIPERACILLIN/TAZOB 4.5 GM 4.5 GM in DEXTROSE 5%-WATER 100 ML IVPB SCH ×3 (03:00→17:52)
[2022-01-26] MEDS ORDERED: DEXTROSE 5%-WATER 100 ML IVPB ONE ×3 (04:20→17:45)
[2022-01-26] MEDS ORDERED: PIPERACILLIN/TAZOBACTAM 4.5 GM VIAL IVPB ONE ×3 (04:20→17:45)
[2022-01-26 07:14] LABS: HEMOGLOBIN 11.5 GM/dL (10.7-15.3); MCH 34.5 pg (25.7-33.7); MCHC 34.8 g/dl (32.0-36.0); MEAN CELL VOLUME 99.1 fl (80-96); MEAN PLT VOLUME 8.2 fl (7.5-11.1); PLATELET COUNT 179 10^3/uL (134-434); RBC 3.33 M/mm3 (3.60-5.2); RDW 14.1 % (11.6-15.6); WHITE BLOOD COUNT 14.1 K/mm3 (4.0-10.0)
[2022-01-26 07:24] LABS: CALCIUM 7.9 mg/dL (8.5-10.1)
[2022-01-26 07:25] LABS: BLOOD UREA NITROGEN 13.6 mg/dL (7-18); MAGNESIUM 1.9 mg/dL (1.8-2.4)
[2022-01-26 07:28] LABS: CREATININE 0.4 mg/dL (0.55-1.3); PHOSPHOROUS 3.1 mg/dL (2.5-4.9)
[2022-01-26] MEDS: PANTOPRAZOLE SODIUM 40 MG VIAL IVPUSH SCH (09:57)
[2022-01-26] MEDS: ENOXAPARIN NA (PORCINE) 40 MG/0.4 ML DISP.SYRIN SQ SCH (09:57)
[2022-01-26] MEDS: MUPIROCIN 2% TOPICAL OINTMENT FOR DECOLONIZATION NS SCH (09:58)
[2022-01-26] MEDS ORDERED: MORPHINE SULFATE/0.9% NACL/PF 100 MG/100 ML BAG IVPB SCH (17:45)
[2022-01-26] MEDS: CHLORHEXIDINE GLUCONATE 4% CLEANSER FOR DECOLONIZATION TP SCH (21:14)
[2022-01-27] MEDS ORDERED: DEXTROSE 5%-WATER 100 ML IVPB ONE ×2 (01:33→09:51)
[2022-01-27] MEDS ORDERED: PIPERACILLIN/TAZOBACTAM 4.5 GM VIAL IVPB ONE ×2 (01:33→09:51)
[2022-01-27] MEDS: PIPERACILLIN/TAZOB 4.5 GM 4.5 GM in DEXTROSE 5%-WATER 100 ML IVPB SCH ×2 (01:34→09:54)
[2022-01-27] MEDS: PANTOPRAZOLE SODIUM 40 MG VIAL IVPUSH SCH (09:54)
[2022-01-27] MEDS: ENOXAPARIN NA (PORCINE) 40 MG/0.4 ML DISP.SYRIN SQ SCH (09:54)
[2022-01-27] MEDS ORDERED: SODIUM CHLORIDE 500 ML IV STA ×2 (12:29→15:28)
[2022-01-28 13:26] VITALS: PULSE 66
[2022-01-28 15:48] VITALS: BP 92/44; TEMP 93
[2022-01-28] MEDS ORDERED: LORazepam 2 MG/ML SDV VIAL IVPUSH ONE (16:18)
== END 2022-01-28 19:57 | disposition expired | DRG 870 ==
LOC: JER 15:10 → JERBED 15:20 → JICU 19:09
PROVIDERS: ADMIT Internal Medicine Pulmonary Disease; ATTEND Internal Medicine Pulmonary Disease
PROC: 5A1955Z Respiratory Ventilation, Greater than 96 Consecutive Hours (ICD-10-PCS; principal; 2022-01-21)
PROC: 0BH17EZ Insertion of Endotracheal Airway into Trachea, Via Natural or Artificial Opening (ICD-10-PCS; 2022-01-21)
PROC: 05HM33Z Insertion of Infusion Device into Right Internal Jugular Vein, Percutaneous Approach (ICD-10-PCS; 2022-01-21)
PROC: 5A12012 Performance of Cardiac Output, Single, Manual (ICD-10-PCS; 2022-01-21)
DX: A41.9 Sepsis, unspecified organism (principal); J69.0 Pneumonitis due to inhalation of food and vomit; R65.21 Severe sepsis with septic shock; J96.01 Acute respiratory failure with hypoxia; I24.8 Other forms of acute ischemic heart disease; N39.0 Urinary tract infection, site not specified; E87.2 Acidosis; G93.1 Anoxic brain damage, not elsewhere classified; G20 Parkinson's disease; I46.9 Cardiac arrest, cause unspecified; F03.90 Unspecified dementia, unspecified severity, without behavioral disturbance, psychotic disturbance, mood disturbance, and anxiety; I10 Essential (primary) hypertension; E87.6 Hypokalemia; D72.829 Elevated white blood cell count, unspecified; B96.1 Klebsiella pneumoniae [K. pneumoniae] as the cause of diseases classified elsewhere
CPT/HCPCS: 36415; 36600; 70450-TC; 71045-TC-FY; 71275-TC; 74018-TC-FY; 74174-TC; 74176-TC; 80048; 80053; 80307; 81003; 82550; 82553; 82803; 82962; 83605; 83735; 84100; 84484; 85025; 85027; 85610; 85730; 87040; 87086; 87186; 93005; 93010; 93306-TC; 94002; 99291; 99292; C9803-CS; Q9967; U0003; U0005